=== PATIENT | male | born 1950 | race Caucasian/White ===

== ENCOUNTER 2016-06-02 13:15 | Inpatient (IN) | payer MEDICARE, MEDICAID, OTHER ==
[2016-06-02] MEDS ORDERED: Sodium Chloride 0.9% 10 ML Syringe FLUSH PRN (13:40)
[2016-06-02] MEDS ORDERED: Sodium Chloride 0.9% 1,000 ML IV SCH (14:15)
[2016-06-02] MEDS ORDERED: LORazepam 2 MG/ML MDV ONE (14:23)
[2016-06-02] MEDS ORDERED: LORazepam 2 MG/ML MDV IVPUSH ONE (14:30)
[2016-06-02] MEDS ORDERED: Piperacillin/Tazobactam/Dext 3.375 GM in Premix Bag 1 BAG IV SCH (14:30)
[2016-06-02] MEDS ORDERED: Vancomycin 1 GM SDV IV SCH (15:00)
[2016-06-02] MEDS ORDERED: Gadoteridol 279.3 MG/ML 20 ML SDV IV SCH (15:00)
[2016-06-02] MEDS ORDERED: Amitriptyline 25 MG Tab PO PRN (15:35)
[2016-06-02] MEDS ORDERED: Glucose Gel 15 GM in 37.5 GM Tube PO PRN (15:39)
[2016-06-02] MEDS ORDERED: 50% Dextrose in Water 50 ML Syringe IV PRN (15:39)
[2016-06-02] MEDS ORDERED: Vancomycin 1.8 GM in Sodium Chloride 0.9% 250 ML IV ONE (16:00)
[2016-06-02] MEDS ORDERED: Nicotine 14 MG/24 Hr Patch ONE (18:09)
--- NOTE | 2016-06-02 19:09 | PCM.HP ---
H&P History of Present Illness - General Date of Service: 06/02/16 Admit Problem/Dx: Source of Information: Patient, Old records, Provider History Limitations: Reports: No limitations - History of Present Illness Initial Comments - Free Text/Narative: This patient is a 65-year-old gentleman who is admitted as a direct admission from the clinic for further evaluation and management of an infected diabetic foot ulcer on his right foot. He is had long-standing history of diabetes as well as known peripheral arterial disease secondary to long-standing tobacco use. He has had previous toe amputations secondary to uncontrolled diabetic infections. She was obtained at the clinic and apparently showed no evidence of osteomyelitis, MRI of the foot is been obtained since admission, the results of which are pending at the time of this dictation. He has felt somewhat more weak over the past few days and was noted to have a fever at the clinic this morning. - Related Data Allergies/Adverse Reactions: Allergies Allergy/AdvReac Type Severity Reaction Status Date / Time No Known Allergies Allergy Verified 04/18/16 12:57 Home Medications: Home Meds Insulin Glargine,Hum.Rec.Anlog [Lantus Solostar] 28 units SQ DAILY 03/14/13 [ History] metFORMIN [Glucophage] 850 mg PO TIDM 03/14/13 [History] Venlafaxine [Effexor] 75 mg PO BID 10/12/13 [History] atorvaSTATin [Lipitor] 10 mg PO BEDTIME 10/12/13 [History] Amitriptyline [Elavil] 25 mg PO BEDTIME PRN 10/16/15 [History] Gabapentin [Neurontin] 800 mg PO TID 10/16/15 [History] Hydrochlorothiazide [Microzide] 12.5 mg PO DAILY 10/16/15 [History] Mupirocin Calcium [Bactroban] 1 applic TP TID 10/16/15 [History] Pentoxifylline [TRENtal] 400 mg PO TID 10/16/15 [History] QUEtiapine [SEROquel] 1 - 2 mg PO BEDTIME PRN 10/16/15 [History] Sulfamethoxazole/Trimethoprim [Bactrim 400-80 MG] 2 tab PO BID 10/16/15 [History ] Morphine [MS Contin] 15 mg PO Q12HR 06/02/16 [History] Morphine [MS Contin] 30 mg PO Q12HR 06/02/16 [History] Past Medical History HEENT History: Reports: Impaired vision Other HEENT History: wears glasses-wolfe not have them with Cardiovascular History: Reports: Hypertension Respiratory History: Reports: None Musculoskeletal History: Reports: Amputation, Other (see below) Other Musculoskeletal History: spinal stenosis, carpal tunnel , lumbar stenosis , toe amputations on both feet Neurological History: Reports: Neuropathy, diabetic Psychiatric History: Reports: Depression Endocrine/Metabolic History: Reports: Diabetes, type II Other Immunologic History: infections in L foot Other Dermatologic History: diabetic ulcer - Infectious Disease History Infectious Disease History: Reports: Chicken pox - Past Surgical History Cardiovascular Surgical History: Reports: Other (see below) Other Cardiovascular Surgeries/Procedures: angiogram, shunts in bilat leg Respiratory Surgical History: Reports: None GI Surgical History: Reports: None Social & Family History - Family History Family Medical History: Noncontributory - Tobacco Use Smoking Status *Q: Current Every Day Smoker Years of Tobacco use: 30 Packs/Tins Daily: 0.5 Used Tobacco, but Quit: No Second Hand Smoke Exposure: No - Caffeine Use Caffeine Use: Reports: Soda - Alcohol Use Days Per Week of Alcohol Use: 0 - Recreational Drug Use Recreational Drug Use: No H&P Review of Systems - Review of Systems: Review Of Systems: See Below General: Reports: fever, weakness. Denies: chills HEENT: Reports: no symptoms Pulmonary: Reports: No Symptoms Cardiovascular: Reports: no symptoms Gastrointestinal: Reports: No symptoms Genitourinary: Reports: no symptoms Musculoskeletal: Reports: foot pain Skin: Reports: no symptoms Psychiatric: Reports: no symptoms Neurological: Reports: No Symptoms Hematologic/Lymphatic: Reports: no symptoms Immunologic: Reports: no symptoms Exam - Exam Exam: See Below - Vital Signs Vital Signs: Last Vital Signs Temp 96.8 F 06/02/16 15:15 Pulse 81 06/02/16 15:15 Resp 18 06/02/16 15:15 BP 133/67 06/02/16 15:15 Pulse Ox 97 06/02/16 15:15 Weight: 206 lb 6.4 oz - Exam Quality Assessment: DVT prophylaxis General: alert, oriented, cooperative, mild distress HEENT: Conjunctiva clear, EOMI, Hearing intact, Mucosa moist & pink, Nares patent, Normal nasal septum, Posterior pharynx clear, Pupils equal, Pupils reactive, TMs clear Neck: supple, trachea midline, +2 carotid pulse wo bruit Lungs: Clear to auscultation, Normal respiratory effort, Decreased breath sounds. No: Wheezing Cardiovascular: regular rate, regular rhythm, normal S1, normal S2. No: tachycardia, systolic murmur, diastolic murmur Abdomen: normal bowel sounds, soft Back Exam: normal inspection, full range of motion, NT Extremities: other (Dressings in place on both the right and left feet) Skin: warm, dry, intact Neurological: cranial nerves intact, strength equal bilateral, normal speech, normal tone. No: focal deficit Neuro Extensive - Mental Status: alert, oriented x3, normal mood/affect, normal cognition, memory intact - Patient Data Lab Results last 24 hrs: Laboratory Results - last 24 hr 06/02/16 06/02/16 Range/Units 13:58 13:58 WBC 15.8 H (4.5-11.0) K/uL RBC 4.17 L (4.30-5.90) M/uL Hgb 12.2 (12.0-15.0) g/dL Hct 36.7 L (40.0-54.0) % MCV 88 (80-98) fL MCH 29 (27-31) pg MCHC 33 (32-36) % Plt Count 304 (150-400) K/uL Neut % (Auto) 72 H (36-66) % Lymph % (Auto) 20 L (24-44) % Will % (Auto) 6 (2-6) % Eos % (Auto) 1 L (2-4) % Baso % (Auto) 0 (0-1) % ESR 45 H (0-20) mm/hr Sodium 140 (140-148) mmol/L Potassium 4.6 (3.6-5.2) mmol/L Chloride 101 (100-108) mmol/L Carbon Dioxide 30 (21-32) mmol/L Anion Gap 8.7 (5.0-14.0) mmol/L BUN 24 H (7-18) mg/dL Creatinine 1.0 (0.8-1.3) mg/dL Est Cr Clr Drug Dosing 80.83 mL/min Estimated GFR (MDRD) > 60 (>60) Glucose 95 (74-106) mg/dL Calcium 8.9 (8.5-10.1) mg/dL Total Bilirubin 0.5 D (0.2-1.0) mg/dL AST 25 (15-37) U/L ALT 21 (12-78) U/L Alkaline Phosphatase 94 (46-116) U/L C-Reactive Protein 1.75 H (0.0-0.3) mg/dL Total Protein 8.4 H (6.4-8.2) g/dL Albumin 4.1 (3.4-5.0) g/dL Globulin 4.3 H (2.3-3.5) g/dL Albumin/Globulin Ratio 1.0 L (1.2-2.2) Result Diagrams: 06/02/16 13:58 06/02/16 13:58 *Q Meaningful Use (ADM) - VTE *Q VTE Criteria *Q: - VTE Risk Assess *Q Each Risk Factor Represents 1 Point: None Total Score 1 Point Risk Factors: 0 Each Risk Factor Represents 2 Points: Age 60 - 74 Years Total Score 2 Point Risk Factors: 2 Each Risk Factor Represents 3 Points: None Total Score 3 Point Risk Factors: 0 Each Risk Factor Represents 5 Points: None Total Score 5 Point Risk Factors: 0 Venous Thromboembolism Risk Factor Score *Q: 2 - Stroke *Q Stroke Criteria *Q: - AMI *Q AMI Criteria *Q: Problem List Initiated/Reviewed/Updated: Yes Orders Last 24hrs: Active Orders 24 hr Category Date Time Status Patient Status [ADT] Routine ADT 06/02/16 13:40 Active Bedrest Bathroom Privileges [RC] ASDIRECTED Care 06/02/16 13:48 Active Blood Glucose Check, Bedside [RC] QIDACANDBED Care 06/02/16 15:39 Active Communication Order [RC] ASDIRECTED Care 06/02/16 15:39 Active Diabetes Education [RC] Click to Edit Care 06/02/16 15:39 Active Dressing Change [Wound Care] [RC] DAILY Care 06/02/16 14:03 Active Elevate Foot of Bed [RC] ASDIRECTED Care 06/02/16 13:47 Active Notify Provider Consults [RC] ASDIRECTED Care 06/02/16 13:46 Active Notify Provider [RC] PRN Care 06/02/16 15:39 Active Oxygen Therapy [RC] PRN Care 06/02/16 13:40 Active Peripheral IV Care [RC] . DIRECTED Care 06/02/16 13:46 Active VTE/DVT Education [RC] Per Unit Routine Care 06/02/16 13:40 Active Vital Signs [RC] QSHIFT Care 06/02/16 13:40 Active Consult to Physician [CONS] Routine Cons 06/02/16 13:40 Ordered Consistent Carbohydrate Diet [DIET] Diet 06/02/16 Lunch Active Lwr Ext Non Joint w wo Cont Rt [MR] Routine Exams 06/02/16 13:53 Taken BASIC METABOLIC PANEL,BMP [CHEM] Timed Lab 06/03/16 05:00 Ordered CBC WITH AUTO DIFF [HEME] Timed Lab 06/03/16 05:00 Ordered GLUCOSE POC LAB TO COLLECT [POC] QIDACANDBED Lab 06/02/16 21:00 Ordered GLUCOSE POC LAB TO COLLECT [POC] QIDACANDBED Lab 06/03/16 07:30 Ordered GLUCOSE POC LAB TO COLLECT [POC] QIDACANDBED Lab 06/03/16 11:30 Ordered GLUCOSE POC LAB TO COLLECT [POC] QIDACANDBED Lab 06/03/16 16:30 Ordered GLUCOSE POC LAB TO COLLECT [POC] QIDACANDBED Lab 06/03/16 21:00 Ordered GLUCOSE POC LAB TO COLLECT [POC] QIDACANDBED Lab 06/04/16 07:30 Ordered GLUCOSE POC LAB TO COLLECT [POC] QIDACANDBED Lab 06/04/16 11:30 Ordered GLUCOSE POC LAB TO COLLECT [POC] QIDACANDBED Lab 06/04/16 16:30 Ordered GLUCOSE POC LAB TO COLLECT [POC] QIDACANDBED Lab 06/04/16 21:00 Ordered GLUCOSE POC LAB TO COLLECT [POC] QIDACANDBED Lab 06/05/16 07:30 Ordered GLUCOSE POC LAB TO COLLECT [POC] QIDACANDBED Lab 06/05/16 11:30 Ordered GLUCOSE POC LAB TO COLLECT [POC] QIDACANDBED Lab 06/05/16 16:30 Ordered GLUCOSE POC LAB TO COLLECT [POC] QIDACANDBED Lab 06/05/16 21:00 Ordered GLUCOSE POC LAB TO COLLECT [POC] QIDACANDBED Lab 06/06/16 07:30 Ordered GLUCOSE POC LAB TO COLLECT [POC] QIDACANDBED Lab 06/06/16 11:30 Ordered GLUCOSE POC LAB TO COLLECT [POC] QIDACANDBED Lab 06/06/16 16:30 Ordered GLUCOSE POC LAB TO COLLECT [POC] QIDACANDBED Lab 06/06/16 21:00 Ordered GLUCOSE POC LAB TO COLLECT [POC] QIDACANDBED Lab 06/07/16 07:30 Ordered GLUCOSE POC LAB TO COLLECT [POC] QIDACANDBED Lab 06/07/16 11:30 Ordered GLUCOSE POC LAB TO COLLECT [POC] QIDACANDBED Lab 06/07/16 16:30 Ordered GLUCOSE POC LAB TO COLLECT [POC] QIDACANDBED Lab 06/07/16 21:00 Ordered GLUCOSE POC LAB TO COLLECT [POC] QIDACANDBED Lab 06/08/16 07:30 Ordered GLUCOSE POC LAB TO COLLECT [POC] QIDACANDBED Lab 06/08/16 11:30 Ordered GLUCOSE POC LAB TO COLLECT [POC] QIDACANDBED Lab 06/08/16 16:30 Ordered GLUCOSE POC LAB TO COLLECT [POC] QIDACANDBED Lab 06/08/16 21:00 Ordered GLUCOSE POC LAB TO COLLECT [POC] QIDACANDBED Lab 06/09/16 07:30 Ordered GLUCOSE POC LAB TO COLLECT [POC] QIDACANDBED Lab 06/09/16 11:30 Ordered GLUCOSE POC LAB TO COLLECT [POC] QIDACANDBED Lab 06/09/16 16:30 Ordered GLUCOSE POC LAB TO COLLECT [POC] QIDACANDBED Lab 06/09/16 21:00 Ordered GLUCOSE POC LAB TO COLLECT [POC] QIDACANDBED Lab 06/10/16 07:30 Ordered GLUCOSE POC LAB TO COLLECT [POC] QIDACANDBED Lab 06/10/16 11:30 Ordered GLUCOSE POC LAB TO COLLECT [POC] QIDACANDBED Lab 06/10/16 16:30 Ordered GLUCOSE POC LAB TO COLLECT [POC] QIDACANDBED Lab 06/10/16 21:00 Ordered GLUCOSE POC LAB TO COLLECT [POC] QIDACANDBED Lab 06/11/16 07:30 Ordered GLUCOSE POC LAB TO COLLECT [POC] QIDACANDBED Lab 06/11/16 11:30 Ordered GLUCOSE POC LAB TO COLLECT [POC] QIDACANDBED Lab 06/11/16 16:30 Ordered GLUCOSE POC LAB TO COLLECT [POC] QIDACANDBED Lab 06/11/16 21:00 Ordered GLUCOSE POC LAB TO COLLECT [POC] QIDACANDBED Lab 06/12/16 07:30 Ordered GLUCOSE POC LAB TO COLLECT [POC] QIDACANDBED Lab 06/12/16 11:30 Ordered GLUCOSE POC LAB TO COLLECT [POC] QIDACANDBED Lab 06/12/16 16:30 Ordered GLUCOSE POC LAB TO COLLECT [POC] QIDACANDBED Lab 06/12/16 21:00 Ordered GLUCOSE POC LAB TO COLLECT [POC] QIDACANDBED Lab 06/13/16 07:30 Ordered GLUCOSE POC LAB TO COLLECT [POC] QIDACANDBED Lab 06/13/16 11:30 Ordered Amitriptyline [Elavil] Med 06/02/16 15:35 Active 25 mg PO BEDTIME PRN Dextrose 50% in Water Med 06/02/16 15:39 Active 50 ml IV ONETIME PRN Dextrose [Glutose 15] Med 06/02/16 15:39 Active 15 gm PO ONETIME PRN Gabapentin [Neurontin] Med 06/02/16 21:00 Active 800 mg PO TID Hydrochlorothiazide Med 06/03/16 09:00 Active 12.5 mg PO DAILY Insulin Aspart [NovoLOG] Med 06/02/16 15:45 Active See Protocol SUBCUT ASDIRECTED Insulin Detemir [Levemir] Med 06/03/16 09:00 Active 28 unit SUBCUT DAILY Nicotine [Habitrol] Med 06/03/16 09:00 Active 14 mg TRDERM DAILY Pentoxifylline [TRENtal] Med 06/02/16 21:00 Active 400 mg PO TID Piperacillin/Tazobactam/Dext [Zosyn in Dextrose Iso- Med 06/02/16 20:00 Active Osmotic 3.375 GM] 3.375 gm Premix Bag 1 bag IV Q6H QUEtiapine [SEROquel] Med 06/02/16 15:35 Active 0 mg PO BEDTIME PRN Sodium Chloride 0.9% [Normal Saline] 1,000 ml Med 06/02/16 14:15 Active IV ASDIRECTED Sodium Chloride 0.9% [Saline Flush] Med 06/02/16 13:40 Active 10 ml FLUSH ASDIRECTED PRN Vancomycin Med 06/02/16 15:00 Active 0 gm IV .PHARMACY TO DOSE Vancomycin 1.5 gm Med 06/03/16 04:00 Active Sodium Chloride 0.9% [Normal Saline] 250 ml IV Q12H Venlafaxine [Effexor] Med 06/02/16 21:00 Active 75 mg PO BID atorvaSTATin [Lipitor] Med 06/02/16 21:00 Active 10 mg PO BEDTIME metFORMIN [Glucophage] Med 06/02/16 17:00 Active 850 mg PO TIDM Peripheral IV Insertion Adult [OM.PC] Routine Oth 06/02/16 13:40 Ordered Resuscitation Status Routine Resus Stat 06/02/16 13:40 Ordered Medication Orders Amitriptyline HCl (Elavil) 25 mg PO BEDTIME PRN PRN Reason: Sleep Atorvastatin Calcium (Lipitor) 10 mg PO BEDTIME [facility] Dextrose (Glutose 15) 15 gm PO ONETIME PRN PRN Reason: Hypoglycemia Dextrose/Water (Dextrose 50% In Water) 50 ml IV ONETIME PRN PRN Reason: Hypoglycemia Gabapentin (Neurontin) 800 mg PO TID [facility] Hydrochlorothiazide (Hydrochlorothiazide) 12.5 mg PO DAILY [facility] Sodium Chloride (Normal Saline) 1,000 mls @ 25 mls/hr IV ASDIRECTED [facility] Piperacillin/Tazobactam/ (Dextrose 3.375 gm/ Premix) 50 mls @ 100 mls/hr IV Q6H [facility] Vancomycin HCl 1.5 gm/ Sodium (Chloride) 250 mls @ 150 mls/hr IV Q12H [facility] Insulin Aspart (Novolog) 0 unit SUBCUT ASDIRECTED [facility] PRN Reason: Protocol Insulin Detemir (Levemir) 28 unit SUBCUT DAILY [facility] Metformin HCl (Glucophage) 850 mg PO TIDM [facility] Last Admin: 06/02/16 17:31 Dose: 850 mg Nicotine (Habitrol) 14 mg TRDERM DAILY [facility] Pentoxifylline (Trental) 400 mg PO TID [facility] Quetiapine Fumarate (Seroquel) 0 mg PO BEDTIME PRN PRN Reason: Sleep Sodium Chloride (Saline Flush) 10 ml FLUSH ASDIRECTED PRN PRN Reason: Keep Vein Open Vancomycin HCl (Vancomycin) 0 gm IV .PHARMACY TO DOSE [facility] Venlafaxine HCl (Effexor) 75 mg PO BID [facility] Assessment/Plan Comment:: ASSESSMENT AND PLAN DIABETIC FOOT ULCER RIGHT FOOT-ulcer looked better one week ago, when seen today was noted to have mike pus. No evidence of osteomyelitis on x-ray. -MRI results pending -Continue current antibiotic therapy as ordered by Dr. Tuttle -IV fluids until tomorrow a.m. -Surgical followup per Dr. Robbins TYPE 2 DIABETES [id number] with history of very poor control and noncompliance. -Continue outpatient dose of long-acting insulin -Continue outpatient dose of NovoLog with each meal -Sliding scale NovoLog -4 times a day glucometers MAINTENANCE ISSUES -DVT prophylaxis; Lovenox 40 mg subcutaneous daily -GI prophylaxis; not required -Colon catheter; not indicated -Nutrition; diabetic diet -Nicotine dependence; nicotinic patch CODE STATUS-FULL CODE ADMISSION STATUS-patient will be admitted to inpatient status, expect at least a 2 night hospital stay for evaluation and management of problems as outlined above. At the time of this admission I do not reasonably expected evaluation and management of this problem will require more than a 96 hour hospital stay. DISPOSITION-anticipate discharge to home after the hospital stay. PRIMARY CARE PROVIDER-Dr. Jara
[2016-06-02] MEDS ORDERED: Enoxaparin 40 MG/0.4 ML Syringe SUBCUT SCH (19:15)
[2016-06-02] MEDS: Piperacillin/Tazobactam/Dext 3.375 GM in Premix Bag 1 BAG IV SCH (21:28)
[2016-06-02] MEDS: Insulin Aspart 100 Units/ML 3 ML Pen SUBCUT SCH (21:34)
[2016-06-02] MEDS: Morphine 15 MG Tab.ER PO SCH (21:36)
[2016-06-02] MEDS: Morphine 30 MG Tab.ER PO SCH (21:39)
[2016-06-02] MEDS: atorvaSTATin 10 MG Tab PO SCH (21:40)
[2016-06-02] MEDS: Gabapentin 400 MG Cap PO SCH (21:40)
[2016-06-02] MEDS: Venlafaxine 75 MG Tab PO SCH (21:40)
[2016-06-02] MEDS: Pentoxifylline 400 MG Tab.ER PO SCH (21:41)
[2016-06-03] MEDS: Piperacillin/Tazobactam/Dext 3.375 GM in Premix Bag 1 BAG IV SCH ×4 (02:17→20:28)
[2016-06-03] MEDS: QUEtiapine 25 MG Tab PO PRN ×2 (03:02→20:37)
--- NOTE | 2016-06-03 08:35 | MR ---
Lwr Ext Non Joint w wo Cont Rt HISTORY: infected right foot Multiplanar sequences of the right foot were obtained without and with gadolinium. FINDINGS: Has been previous amputation of the second and third toes. There is increased T2 signal co nsistent with marrow edema along with enhancement distal right third metatarsal suspicious for osteo myelitis. I cannot identify definite bony destructive or erosive changes. No other marrow edema or a bnormal marrow enhancement is identified. Soft tissue edema and enhancement is seen distal foot cons istent with cellulitis. I see no signs of abscess. IMPRESSION: 1. Old amputation changes right second and third toes. 2. Soft tissue edema and enhancement distal foot suggesting cellulitis. 3. There is marrow edema and enhancement distal third metatarsal likely representing osteomyelitis.
[2016-06-03] MEDS: Morphine 30 MG Tab.ER PO SCH ×2 (09:05→20:36)
[2016-06-03] MEDS: Morphine 15 MG Tab.ER PO SCH ×2 (09:08→20:36)
[2016-06-03] MEDS: Insulin Detemir 100 Units/ML 3 ML Pen SUBCUT SCH (09:08)
[2016-06-03] MEDS: Nicotine 14 MG/24 Hr Patch TRDERM SCH (09:10)
[2016-06-03] MEDS: Gabapentin 400 MG Cap PO SCH ×3 (12:53→20:37)
[2016-06-03] MEDS: Pentoxifylline 400 MG Tab.ER PO SCH ×3 (12:53→20:37)
[2016-06-03] MEDS: Hydrochlorothiazide 12.5 MG Cap PO SCH (15:05)
[2016-06-03] MEDS: Venlafaxine 75 MG Tab PO SCH ×2 (15:05→20:36)
[2016-06-03] MEDS: Insulin Aspart 100 Units/ML 3 ML Pen SUBCUT SCH ×2 (17:48→22:36)
--- NOTE | 2016-06-03 17:55 | PCM.PN ---
- General Info Date of Service: 06/03/16 Functional Status: Reports: tolerating diet, urinating - Review of Systems General: Denies: Fever, Chills Pulmonary: Reports: no symptoms Cardiovascular: Reports: No Symptoms Gastrointestinal: Reports: No symptoms Systems Review Comment:: This patient has been stable over the past 24 hours, vital signs have been good and he has remained afebrile. White blood cell count has improved since admission but still remains mildly elevated. MRI was obtained today and shows evidence of cellulitis in the foot, but also suspicious for osteomyelitis. - Patient Data Vitals - most recent: Last Vital Signs Temp 95.4 F 06/03/16 14:41 Pulse 65 06/03/16 14:41 Resp 16 06/03/16 14:41 BP 99/65 06/03/16 14:41 Pulse Ox 100 06/03/16 14:41 Weight - most recent: 206 lb 6.4 oz I&O - last 24 hours: Intake & Output 06/03/16 06/03/16 06/03/16 06:59 14:59 22:59 Intake Total 50 290 771 Balance 50 290 771 Lab Results last 24 hrs: Laboratory Results - last 24 hr 06/03/16 06/03/16 Range/Units 04:50 04:50 WBC 11.4 H (4.5-11.0) K/uL RBC 3.85 L (4.30-5.90) M/uL Hgb 11.1 L (12.0-15.0) g/dL Hct 33.6 L (40.0-54.0) % MCV 87 (80-98) fL MCH 29 (27-31) pg MCHC 33 (32-36) % Plt Count 244 (150-400) K/uL Neut % (Auto) 54 (36-66) % Lymph % (Auto) 36 (24-44) % [place] % (Auto) 7 H (2-6) % Eos % (Auto) 3 (2-4) % Baso % (Auto) 0 (0-1) % Sodium 141 (140-148) mmol/L Potassium 4.0 (3.6-5.2) mmol/L Chloride 105 (100-108) mmol/L Carbon Dioxide 29 (21-32) mmol/L Anion Gap 7.1 (5.0-14.0) mmol/L BUN 21 H (7-18) mg/dL Creatinine 1.0 (0.8-1.3) mg/dL Est Cr Clr Drug Dosing 80.83 mL/min Estimated GFR (MDRD) > 60 (>60) Glucose 70 L (74-106) mg/dL Calcium 8.2 L (8.5-10.1) mg/dL Med Orders - Current: Current Medications Amitriptyline HCl (Elavil) 25 mg PO BEDTIME PRN PRN Reason: Sleep Atorvastatin Calcium (Lipitor) 10 mg PO BEDTIME [facility] Last Admin: 06/02/16 21:40 Dose: 10 mg Dextrose (Glutose 15) 15 gm PO ONETIME PRN PRN Reason: Hypoglycemia Dextrose/Water (Dextrose 50% In Water) 50 ml IV ONETIME PRN PRN Reason: Hypoglycemia Enoxaparin Sodium (Lovenox) 40 mg SUBCUT BEDTIME [facility] Gabapentin (Neurontin) 800 mg PO TID [facility] Last Admin: 06/03/16 15:05 Dose: 800 mg Hydrochlorothiazide (Hydrochlorothiazide) 12.5 mg PO DAILY [facility] Last Admin: 06/03/16 15:05 Dose: 12.5 mg Sodium Chloride (Normal Saline) 1,000 mls @ 25 mls/hr IV ASDIRECTED [facility] Piperacillin/Tazobactam/ (Dextrose 3.375 gm/ Premix) 50 mls @ 100 mls/hr IV Q6H [facility] Last Admin: 06/03/16 15:06 Dose: 100 mls/hr Vancomycin HCl 1.5 gm/ Sodium (Chloride) 250 mls @ 150 mls/hr IV Q12H [facility] Last Admin: 06/03/16 17:12 Dose: 150 mls/hr Insulin Aspart (Novolog) 0 unit SUBCUT ASDIRECTED [facility] PRN Reason: Protocol Last Admin: 06/02/16 21:34 Dose: 2 unit Insulin Detemir (Levemir) 28 unit SUBCUT DAILY [facility] Last Admin: 06/03/16 09:08 Dose: Not Given Metformin HCl (Glucophage) 850 mg PO TIDM [facility] Last Admin: 06/03/16 15:05 Dose: 850 mg Morphine Sulfate (Ms Contin) 30 mg PO Q12H [facility] Last Admin: 06/03/16 09:05 Dose: 30 mg Morphine Sulfate (Ms Contin) 15 mg PO Q12H [facility] Last Admin: 06/03/16 09:08 Dose: 15 mg Nicotine (Habitrol) 14 mg TRDERM DAILY [facility] Last Admin: 06/03/16 09:10 Dose: 14 mg Pentoxifylline (Trental) 400 mg PO TID [facility] Last Admin: 06/03/16 15:04 Dose: 400 mg Quetiapine Fumarate (Seroquel) 0 mg PO BEDTIME PRN PRN Reason: Sleep Last Admin: 06/03/16 03:02 Dose: 50 mg Sodium Chloride (Saline Flush) 10 ml FLUSH ASDIRECTED PRN PRN Reason: Keep Vein Open Venlafaxine HCl (Effexor) 75 mg PO BID [facility] Last Admin: 06/03/16 15:05 Dose: 75 mg Discontinued Medications Enoxaparin Sodium (Lovenox) 40 mg SUBCUT DAILY [facility] Last Admin: 06/02/16 21:47 Dose: 40 mg Gadoteridol (Prohance) 20 ml IV . DIRECTED [facility] Stop: 06/02/16 15:01 Last Admin: 06/02/16 15:40 Dose: 19 ml Piperacillin/Tazobactam/ (Dextrose 3.375 gm/ Premix) 50 mls @ 100 mls/hr IV Q6H [facility] Stop: 06/02/16 16:00 Last Admin: 06/02/16 17:29 Dose: 100 mls/hr Vancomycin HCl 1.8 gm/ Sodium (Chloride) 250 mls @ 150 mls/hr IV ONETIME ONE Stop: 06/02/16 17:39 Last Admin: 06/02/16 17:29 Dose: 150 mls/hr Lorazepam (Ativan) 0.5 mg IVPUSH ONETIME ONE Stop: 06/02/16 14:31 Last Admin: 06/02/16 14:26 Dose: 0.5 mg Lorazepam (Ativan) Confirm Administered Dose 2 mg .ROUTE .STK-MED ONE Stop: 06/02/16 14:24 Last Admin: 06/02/16 17:00 Dose: Not Given Nicotine (Habitrol) Confirm Administered Dose 14 mg .ROUTE .STK-MED ONE Stop: 06/02/16 18:10 Last Admin: 06/02/16 18:36 Dose: 14 mg Vancomycin HCl (Vancomycin) 0 gm IV .PHARMACY TO DOSE HARIS - Exam Quality Assessment: DVT prophylaxis General: alert, oriented, cooperative, no acute distress Lungs: Clear to auscultation, Normal respiratory effort Cardiovascular: Regular Rate, Regular Rhythm, No Murmurs Abdomen: bowel sounds present, soft, no tenderness, no distension Extremities: no edema, other (Open ulcer lateral aspect of the right foot) Skin: warm, dry, intact - Problem List Review Problem List Initiated/Reviewed/Updated: Yes - My Orders Last 24 Hours: My Active Orders 06/02/16 17:00 metFORMIN [Glucophage] 850 mg PO TIDM 06/02/16 21:00 Gabapentin [Neurontin] 800 mg PO TID Morphine [MS Contin] 15 mg PO Q12H Morphine [MS Contin] 30 mg PO Q12H Pentoxifylline [TRENtal] 400 mg PO TID Venlafaxine [Effexor] 75 mg PO BID atorvaSTATin [Lipitor] 10 mg PO BEDTIME 06/03/16 09:00 Hydrochlorothiazide 12.5 mg PO DAILY Insulin Detemir [Levemir] 28 unit SUBCUT DAILY Nicotine [Habitrol] 14 mg TRDERM DAILY 06/03/16 21:00 GLUCOSE POC LAB TO COLLECT [POC] QIDACANDBED Enoxaparin [Lovenox] 40 mg SUBCUT BEDTIME 06/04/16 07:30 GLUCOSE POC LAB TO COLLECT [POC] QIDACANDBED 06/04/16 11:30 GLUCOSE POC LAB TO COLLECT [POC] QIDACANDBED 06/04/16 16:30 GLUCOSE POC LAB TO COLLECT [POC] QIDACANDBED 06/04/16 21:00 GLUCOSE POC LAB TO COLLECT [POC] QIDACANDBED 06/05/16 07:30 GLUCOSE POC LAB TO COLLECT [POC] QIDACANDBED 06/05/16 11:30 GLUCOSE POC LAB TO COLLECT [POC] QIDACANDBED 06/05/16 16:30 GLUCOSE POC LAB TO COLLECT [POC] QIDACANDBED 06/05/16 21:00 GLUCOSE POC LAB TO COLLECT [POC] QIDACANDBED 06/06/16 07:30 GLUCOSE POC LAB TO COLLECT [POC] QIDACANDBED 06/06/16 11:30 GLUCOSE POC LAB TO COLLECT [POC] QIDACANDBED 06/06/16 16:30 GLUCOSE POC LAB TO COLLECT [POC] QIDACANDBED 06/06/16 21:00 GLUCOSE POC LAB TO COLLECT [POC] QIDACANDBED 06/07/16 07:30 GLUCOSE POC LAB TO COLLECT [POC] QIDACANDBED 06/07/16 11:30 GLUCOSE POC LAB TO COLLECT [POC] QIDACANDBED 06/07/16 16:30 GLUCOSE POC LAB TO COLLECT [POC] QIDACANDBED 06/07/16 21:00 GLUCOSE POC LAB TO COLLECT [POC] QIDACANDBED 06/08/16 07:30 GLUCOSE POC LAB TO COLLECT [POC] QIDACANDBED 06/08/16 11:30 GLUCOSE POC LAB TO COLLECT [POC] QIDACANDBED 06/08/16 16:30 GLUCOSE POC LAB TO COLLECT [POC] QIDACANDBED 06/08/16 21:00 GLUCOSE POC LAB TO COLLECT [POC] QIDACANDBED 06/09/16 07:30 GLUCOSE POC LAB TO COLLECT [POC] QIDACANDBED 06/09/16 11:30 GLUCOSE POC LAB TO COLLECT [POC] QIDACANDBED 06/09/16 16:30 GLUCOSE POC LAB TO COLLECT [POC] QIDACANDBED 06/09/16 21:00 GLUCOSE POC LAB TO COLLECT [POC] QIDACANDBED 06/10/16 07:30 GLUCOSE POC LAB TO COLLECT [POC] QIDACANDBED 06/10/16 11:30 GLUCOSE POC LAB TO COLLECT [POC] QIDACANDBED 06/10/16 16:30 GLUCOSE POC LAB TO COLLECT [POC] QIDACANDBED 06/10/16 21:00 GLUCOSE POC LAB TO COLLECT [POC] QIDACANDBED 06/11/16 07:30 GLUCOSE POC LAB TO COLLECT [POC] QIDACANDBED 06/11/16 11:30 GLUCOSE POC LAB TO COLLECT [POC] QIDACANDBED 06/11/16 16:30 GLUCOSE POC LAB TO COLLECT [POC] QIDACANDBED 06/11/16 21:00 GLUCOSE POC LAB TO COLLECT [POC] QIDACANDBED 06/12/16 07:30 GLUCOSE POC LAB TO COLLECT [POC] QIDACANDBED 06/12/16 11:30 GLUCOSE POC LAB TO COLLECT [POC] QIDACANDBED 06/12/16 16:30 GLUCOSE POC LAB TO COLLECT [POC] QIDACANDBED 06/12/16 21:00 GLUCOSE POC LAB TO COLLECT [POC] QIDACANDBED 06/13/16 07:30 GLUCOSE POC LAB TO COLLECT [POC] QIDACANDBED 06/13/16 11:30 GLUCOSE POC LAB TO COLLECT [POC] QIDACANDBED - Plan Plan:: ASSESSMENT AND PLAN DIABETIC FOOT ULCER RIGHT FOOT-stable since admission, afebrile, white blood cell count improved. MRI showed evidence of cellulitis in the soft tissue of the right foot and possible osteomyelitis. -Continue current antibiotic therapy as ordered by Dr. Tuttle -Saline lock IV -Surgical followup per Dr. Robbins TYPE 2 DIABETES [id number] with history of very poor control and noncompliance. -Continue outpatient dose of long-acting insulin -Continue outpatient dose of NovoLog with each meal -Sliding scale NovoLog -4 times a day glucometers MAINTENANCE ISSUES -DVT prophylaxis; Lovenox 40 mg subcutaneous daily -GI prophylaxis; not required -Colon catheter; not indicated -Nutrition; diabetic diet -Nicotine dependence; nicotinic patch CODE STATUS-FULL CODE ADMISSION STATUS-patient will be admitted to inpatient status, expect at least a 2 night hospital stay for evaluation and management of problems as outlined above. At the time of this admission I do not reasonably expected evaluation and management of this problem will require more than a 96 hour hospital stay. DISPOSITION-anticipate discharge to home after the hospital stay. PRIMARY CARE PROVIDER-Dr. Jara
[2016-06-03] MEDS: Enoxaparin 40 MG/0.4 ML Syringe SUBCUT SCH (20:36)
[2016-06-03] MEDS: atorvaSTATin 10 MG Tab PO SCH (20:36)
[2016-06-04] MEDS: Piperacillin/Tazobactam/Dext 3.375 GM in Premix Bag 1 BAG IV SCH ×2 (02:07→08:03)
[2016-06-04] MEDS: Nicotine 14 MG/24 Hr Patch TRDERM SCH (08:35)
[2016-06-04] MEDS: Gabapentin 400 MG Cap PO SCH ×3 (08:36→21:08)
[2016-06-04] MEDS: Pentoxifylline 400 MG Tab.ER PO SCH ×3 (08:39→21:08)
[2016-06-04] MEDS: Insulin Detemir 100 Units/ML 3 ML Pen SUBCUT SCH (08:42)
[2016-06-04] MEDS: Morphine 30 MG Tab.ER PO SCH ×2 (08:50→21:02)
[2016-06-04] MEDS: Morphine 15 MG Tab.ER PO SCH ×2 (08:50→21:07)
[2016-06-04] MEDS: Venlafaxine 75 MG Tab PO SCH ×2 (09:09→21:01)
[2016-06-04] MEDS: Hydrochlorothiazide 12.5 MG Cap PO SCH (09:09)
--- NOTE | 2016-06-04 11:55 | PCM.PN ---
- General Info Date of Service: 06/04/16 Functional Status: Reports: pain controlled, ambulating, urinating - Review of Systems General: Denies: Fever, Chills Pulmonary: Reports: no symptoms Cardiovascular: Reports: No Symptoms Gastrointestinal: Reports: No symptoms Musculoskeletal: Reports: foot pain Systems Review Comment:: Mr. Fry has been stable since yesterday, does continue to experience some pain in his right foot. White blood cell count has normalized, vital signs are stable, and he has been afebrile. - Patient Data Vitals - most recent: Last Vital Signs Temp 95.5 F 06/04/16 07:11 Pulse 63 06/04/16 07:07 Resp 16 06/04/16 07:07 BP 111/60 06/04/16 07:07 Pulse Ox 96 06/04/16 07:07 Weight - most recent: 206 lb 6.4 oz I&O - last 24 hours: Intake & Output 06/03/16 06/04/16 06/04/16 22:59 06:59 14:59 Intake Total 1131 950 Balance 1131 950 Lab Results last 24 hrs: Laboratory Results - last 24 hr 06/04/16 06/04/16 Range/Units 05:57 05:57 WBC 10.9 (4.5-11.0) K/uL RBC 4.21 L (4.30-5.90) M/uL Hgb 12.1 (12.0-15.0) g/dL Hct 37.1 L (40.0-54.0) % MCV 88 (80-98) fL MCH 29 (27-31) pg MCHC 33 (32-36) % Plt Count 279 (150-400) K/uL Sodium 142 (140-148) mmol/L Potassium 4.3 (3.6-5.2) mmol/L Chloride 106 (100-108) mmol/L Carbon Dioxide 29 (21-32) mmol/L Anion Gap 7.4 (5.0-14.0) mmol/L BUN 18 (7-18) mg/dL Creatinine 1.0 (0.8-1.3) mg/dL Est Cr Clr Drug Dosing 80.83 mL/min Estimated GFR (MDRD) > 60 (>60) Glucose 107 H (74-106) mg/dL Calcium 8.1 L (8.5-10.1) mg/dL Total Bilirubin 0.3 (0.2-1.0) mg/dL AST 24 (15-37) U/L ALT 18 (12-78) U/L Alkaline Phosphatase 81 (46-116) U/L Total Protein 7.7 (6.4-8.2) g/dL Albumin 3.4 (3.4-5.0) g/dL Globulin 4.3 H (2.3-3.5) g/dL Albumin/Globulin Ratio 0.8 L (1.2-2.2) Med Orders - Current: Current Medications Amitriptyline HCl (Elavil) 25 mg PO BEDTIME PRN PRN Reason: Sleep Atorvastatin Calcium (Lipitor) 10 mg PO BEDTIME [facility] Last Admin: 06/03/16 20:36 Dose: 10 mg Dextrose (Glutose 15) 15 gm PO ONETIME PRN PRN Reason: Hypoglycemia Dextrose/Water (Dextrose 50% In Water) 50 ml IV ONETIME PRN PRN Reason: Hypoglycemia Enoxaparin Sodium (Lovenox) 40 mg SUBCUT BEDTIME [facility] Last Admin: 06/03/16 20:36 Dose: 40 mg Gabapentin (Neurontin) 800 mg PO TID [facility] Last Admin: 06/04/16 08:36 Dose: 800 mg Hydrochlorothiazide (Hydrochlorothiazide) 12.5 mg PO DAILY [facility] Last Admin: 06/04/16 09:09 Dose: 12.5 mg Ertapenem 1 gm/ Sodium (Chloride) 100 mls @ 200 mls/hr IV DAILY [facility] Stop: 06/18/16 12:01 Insulin Aspart (Novolog) 0 unit SUBCUT ASDIRECTED [facility] PRN Reason: Protocol Last Admin: 06/03/16 22:36 Dose: 2 unit Insulin Detemir (Levemir) 28 unit SUBCUT DAILY [facility] Last Admin: 06/04/16 08:42 Dose: 28 units Metformin HCl (Glucophage) 850 mg PO TIDM [facility] Last Admin: 06/04/16 07:56 Dose: 850 mg Morphine Sulfate (Ms Contin) 30 mg PO Q12H [facility] Last Admin: 06/04/16 08:50 Dose: 30 mg Morphine Sulfate (Ms Contin) 15 mg PO Q12H [facility] Last Admin: 06/04/16 08:50 Dose: 15 mg Nicotine (Habitrol) 14 mg TRDERM DAILY [facility] Last Admin: 06/04/16 08:35 Dose: 14 mg Pentoxifylline (Trental) 400 mg PO TID [facility] Last Admin: 06/04/16 08:39 Dose: 400 mg Quetiapine Fumarate (Seroquel) 0 mg PO BEDTIME PRN PRN Reason: Sleep Last Admin: 06/03/16 20:37 Dose: 100 mg Sodium Chloride (Saline Flush) 10 ml FLUSH ASDIRECTED PRN PRN Reason: Keep Vein Open Venlafaxine HCl (Effexor) 75 mg PO BID [facility] Last Admin: 06/04/16 09:09 Dose: 75 mg Discontinued Medications Enoxaparin Sodium (Lovenox) 40 mg SUBCUT DAILY [facility] Last Admin: 06/02/16 21:47 Dose: 40 mg Gadoteridol (Prohance) 20 ml IV . DIRECTED [facility] Stop: 06/02/16 15:01 Last Admin: 06/02/16 15:40 Dose: 19 ml Sodium Chloride (Normal Saline) 1,000 mls @ 25 mls/hr IV ASDIRECTED [facility] Piperacillin/Tazobactam/ (Dextrose 3.375 gm/ Premix) 50 mls @ 100 mls/hr IV Q6H [facility] Stop: 06/02/16 16:00 Last Admin: 06/02/16 17:29 Dose: 100 mls/hr Piperacillin/Tazobactam/ (Dextrose 3.375 gm/ Premix) 50 mls @ 100 mls/hr IV Q6H [facility] Last Admin: 06/04/16 08:03 Dose: 100 mls/hr Vancomycin HCl 1.8 gm/ Sodium (Chloride) 250 mls @ 150 mls/hr IV ONETIME ONE Stop: 06/02/16 17:39 Last Admin: 06/02/16 17:29 Dose: 150 mls/hr Vancomycin HCl 1.5 gm/ Sodium (Chloride) 250 mls @ 150 mls/hr IV Q12H [facility] Last Admin: 06/04/16 04:37 Dose: 150 mls/hr Lorazepam (Ativan) 0.5 mg IVPUSH ONETIME ONE Stop: 06/02/16 14:31 Last Admin: 06/02/16 14:26 Dose: 0.5 mg Lorazepam (Ativan) Confirm Administered Dose 2 mg .ROUTE .STK-MED ONE Stop: 06/02/16 14:24 Last Admin: 06/02/16 17:00 Dose: Not Given Nicotine (Habitrol) Confirm Administered Dose 14 mg .ROUTE .STK-MED ONE Stop: 06/02/16 18:10 Last Admin: 06/02/16 18:36 Dose: 14 mg Vancomycin HCl (Vancomycin) 0 gm IV .PHARMACY TO DOSE HARIS - Exam Quality Assessment: DVT prophylaxis General: alert, oriented, cooperative, no acute distress Lungs: Clear to auscultation, Normal respiratory effort Cardiovascular: Regular Rate, Regular Rhythm, No Murmurs Abdomen: bowel sounds present, soft, no tenderness, no distension - Problem List Review Problem List Initiated/Reviewed/Updated: Yes - My Orders Last 24 Hours: My Active Orders 06/03/16 18:14 Convert IV to Saline Lock [OM.PC] Routine 06/03/16 21:00 Enoxaparin [Lovenox] 40 mg SUBCUT BEDTIME 06/04/16 16:30 GLUCOSE POC LAB TO COLLECT [POC] QIDACANDBED 06/04/16 21:00 GLUCOSE POC LAB TO COLLECT [POC] QIDACANDBED 06/05/16 07:30 GLUCOSE POC LAB TO COLLECT [POC] QIDACANDBED 06/05/16 11:30 GLUCOSE POC LAB TO COLLECT [POC] QIDACANDBED 06/05/16 16:30 GLUCOSE POC LAB TO COLLECT [POC] QIDACANDBED 06/05/16 21:00 GLUCOSE POC LAB TO COLLECT [POC] QIDACANDBED 06/06/16 07:30 GLUCOSE POC LAB TO COLLECT [POC] QIDACANDBED 06/06/16 11:30 GLUCOSE POC LAB TO COLLECT [POC] QIDACANDBED 06/06/16 16:30 GLUCOSE POC LAB TO COLLECT [POC] QIDACANDBED 06/06/16 21:00 GLUCOSE POC LAB TO COLLECT [POC] QIDACANDBED 06/07/16 07:30 GLUCOSE POC LAB TO COLLECT [POC] QIDACANDBED 06/07/16 11:30 GLUCOSE POC LAB TO COLLECT [POC] QIDACANDBED 06/07/16 16:30 GLUCOSE POC LAB TO COLLECT [POC] QIDACANDBED 06/07/16 21:00 GLUCOSE POC LAB TO COLLECT [POC] QIDACANDBED 06/08/16 07:30 GLUCOSE POC LAB TO COLLECT [POC] QIDACANDBED 06/08/16 11:30 GLUCOSE POC LAB TO COLLECT [POC] QIDACANDBED 06/08/16 16:30 GLUCOSE POC LAB TO COLLECT [POC] QIDACANDBED 06/08/16 21:00 GLUCOSE POC LAB TO COLLECT [POC] QIDACANDBED 06/09/16 07:30 GLUCOSE POC LAB TO COLLECT [POC] QIDACANDBED 06/09/16 11:30 GLUCOSE POC LAB TO COLLECT [POC] QIDACANDBED 06/09/16 16:30 GLUCOSE POC LAB TO COLLECT [POC] QIDACANDBED 06/09/16 21:00 GLUCOSE POC LAB TO COLLECT [POC] QIDACANDBED 06/10/16 07:30 GLUCOSE POC LAB TO COLLECT [POC] QIDACANDBED 06/10/16 11:30 GLUCOSE POC LAB TO COLLECT [POC] QIDACANDBED 06/10/16 16:30 GLUCOSE POC LAB TO COLLECT [POC] QIDACANDBED 06/10/16 21:00 GLUCOSE POC LAB TO COLLECT [POC] QIDACANDBED 06/11/16 07:30 GLUCOSE POC LAB TO COLLECT [POC] QIDACANDBED 06/11/16 11:30 GLUCOSE POC LAB TO COLLECT [POC] QIDACANDBED 06/11/16 16:30 GLUCOSE POC LAB TO COLLECT [POC] QIDACANDBED 06/11/16 21:00 GLUCOSE POC LAB TO COLLECT [POC] QIDACANDBED 06/12/16 07:30 GLUCOSE POC LAB TO COLLECT [POC] QIDACANDBED 06/12/16 11:30 GLUCOSE POC LAB TO COLLECT [POC] QIDACANDBED 06/12/16 16:30 GLUCOSE POC LAB TO COLLECT [POC] QIDACANDBED 06/12/16 21:00 GLUCOSE POC LAB TO COLLECT [POC] QIDACANDBED 06/13/16 07:30 GLUCOSE POC LAB TO COLLECT [POC] QIDACANDBED 06/13/16 11:30 GLUCOSE POC LAB TO COLLECT [POC] QIDACANDBED - Plan Plan:: ASSESSMENT AND PLAN DIABETIC FOOT ULCER RIGHT FOOT-stable since admission, afebrile, white blood cell count improved. MRI showed evidence of cellulitis in the soft tissue of the right foot and possible osteomyelitis. Current plan is for conservative management, PICC line placement in 2 weeks of IV antibiotic therapy with Invanz. -2 weeks of IV antibiotic therapy with Invanz -PICC line placement -Saline lock IV -Surgical followup per Dr. Robbins TYPE 2 DIABETES [id number] with history of very poor control and noncompliance. -Continue outpatient dose of long-acting insulin -Continue outpatient dose of NovoLog with each meal -Sliding scale NovoLog -4 times a day glucometers MAINTENANCE ISSUES -DVT prophylaxis; Lovenox 40 mg subcutaneous daily -GI prophylaxis; not required -Colon catheter; not indicated -Nutrition; diabetic diet -Nicotine dependence; nicotinic patch CODE STATUS-FULL CODE ADMISSION STATUS-patient will be admitted to inpatient status, expect at least a 2 night hospital stay for evaluation and management of problems as outlined above. At the time of this admission I do not reasonably expected evaluation and management of this problem will require more than a 96 hour hospital stay. DISPOSITION-anticipate discharge to home after the hospital stay. PRIMARY CARE PROVIDER-Dr. Jara
[2016-06-04] MEDS: Insulin Aspart 100 Units/ML 3 ML Pen SUBCUT SCH ×3 (13:15→21:11)
[2016-06-04] MEDS: Ertapenem 1 GM in Sodium Chloride 0.9% 100 ML IV SCH (14:18)
[2016-06-04] MEDS: Enoxaparin 40 MG/0.4 ML Syringe SUBCUT SCH (21:00)
[2016-06-04] MEDS: atorvaSTATin 10 MG Tab PO SCH (21:01)
[2016-06-04] MEDS: QUEtiapine 25 MG Tab PO PRN (22:50)
--- NOTE | 2016-06-05 08:54 | CR ---
Chest 1V Frontal HISTORY: PICC line placed COMPARISON: 04/09/2013 FINDINGS: Lungs appear clear and normally aerated. Cardiomediastinal silhouette is within normal limits. No va scular redistribution or pleural fluid can be seen. PICC line has been placed from a right brachial approach. The tip overlies the mid superior vena cava. There is no pneumothorax or other complicatio n. Bony structures and soft tissues are unremarkable. IMPRESSION: PICC line has been place with tip overlying the mid SVC. No acute chest abnormality identified.
[2016-06-05] MEDS: Insulin Detemir 100 Units/ML 3 ML Pen SUBCUT SCH (09:16)
[2016-06-05] MEDS: Nicotine 14 MG/24 Hr Patch TRDERM SCH (09:18)
[2016-06-05] MEDS: Venlafaxine 75 MG Tab PO SCH (09:18)
[2016-06-05] MEDS: Hydrochlorothiazide 12.5 MG Cap PO SCH (09:19)
[2016-06-05] MEDS: Morphine 15 MG Tab.ER PO SCH (09:20)
[2016-06-05] MEDS: Morphine 30 MG Tab.ER PO SCH (09:21)
[2016-06-05] MEDS: Gabapentin 400 MG Cap PO SCH ×2 (09:21→13:38)
[2016-06-05] MEDS: Pentoxifylline 400 MG Tab.ER PO SCH ×2 (09:22→13:38)
[2016-06-05 11:21] VITALS: BP 122/70
[2016-06-05] MEDS: Insulin Aspart 100 Units/ML 3 ML Pen SUBCUT SCH (12:08)
--- NOTE | 2016-06-05 13:13 | PCM.DCSUM1 ---
Discharge Summary - Hospital Course Brief History: Mr. Fry is a 65-year-old gentleman who was admitted as a direct admission from the clinic for management of a diabetic foot infection and ulcer on his right foot. - Discharge Data Discharge Date: 06/05/16 Discharge Disposition: Home, Self-Care 01 Condition: Fair - Discharge Diagnosis/Problem(s) (1) Diabetic foot ulcer SNOMED Code(s): 349698115 ICD Code: E11.621 - TYPE 2 DIABETES MELLITUS WITH FOOT ULCER; L97.509 - NON- PRESSURE CHRONIC ULCER OTH PRT UNSP FOOT W UNSP SEVERITY Status: Acute Current Visit: Yes (2) Diabetes mellitus type 2 SNOMED Code(s): 78402603 ICD Code: E11.9 - TYPE 2 DIABETES MELLITUS WITHOUT COMPLICATIONS Status: Chronic Current Visit: No (3) Diabetic peripheral neuropathy SNOMED Code(s): 016854768, 091279975 ICD Code: E11.42 - TYPE 2 DIABETES MELLITUS WITH DIABETIC POLYNEUROPATHY Status: Chronic Current Visit: No - Patient Summary/Data Consults: Consultations 06/02/16 13:40 Consult to Physician [CONS] Routine Consulting Provider: Sami Raines Call Completed to Consulting Physician: Yes Reason for Consult: medical management Person Notified: Yanna Date Notified: 06/02/16 Time Notified: 13:46 Special Instructions: notified per Dr. Tuttle Hospital Course: Mr. Fry is a 65-year-old gentleman who was admitted as a direct admission from the clinic for further management of a diabetic foot ulcer and infection on his right foot. He has a known history of diabetes as well as peripheral arterial disease and is had previous ulcers requiring surgical interventions and amputation of toes. He is been found in the clinic for an ulcer on the lateral aspect of the right foot, when seen on the day of admission was noted to have mike pus from the ulcer. X-ray obtained at the clinic showed no evidence of osteomyelitis. On admission he was given IV antibiotic therapy with meropenem and vancomycin. Initially his white blood cell count was elevated but had decreased to normal by the time of discharge with obvious improvement of the cellulitis of his foot. MRI was obtained and suggested osteomyelitis of the third metatarsal, this was somewhat unusual is that the osteomyelitis does not appear to be in the area of current infection. He was seen and followed from a surgical standpoint by Dr. Robbins. Because of his significant vascular disease decision was made to try and treat the infection conservatively rather than proceed with surgical intervention. You will be discharged to home on a 12 day course of IV antibiotic therapy with Selene. He will come into the outpatient area the hospital daily to have his IV infusion. Followup appointment will be scheduled in the clinic first part of next week. Activity will be as tolerated and he will resume his usual diet. We did monitor his diabetes throughout the hospital stay and blood sugars remained fairly good especially prior to discharge. He will resume his usual insulin regimen after discharge. - Patient Instructions Diet: Diabetic Diet Activity: As Tolerated Other/Special Instructions: Followup appointment with Dr. Tuttle early next week. Daily antibiotic infusion with Selene, outpatient, x12 days. - Discharge Plan Home Medications: Home Meds Insulin Glargine,Hum.Rec.Anlog [Lantus Solostar] 28 units SQ DAILY 03/14/13 [ History] metFORMIN [Glucophage] 850 mg PO TIDM 03/14/13 [History] Venlafaxine [Effexor] 75 mg PO BID 10/12/13 [History] atorvaSTATin [Lipitor] 10 mg PO BEDTIME 10/12/13 [History] Amitriptyline [Elavil] 25 mg PO BEDTIME PRN 10/16/15 [History] Gabapentin [Neurontin] 800 mg PO TID 10/16/15 [History] Hydrochlorothiazide [Microzide] 12.5 mg PO DAILY 10/16/15 [History] Mupirocin Calcium [Bactroban] 1 applic TP TID 10/16/15 [History] Pentoxifylline [TRENtal] 400 mg PO TID 10/16/15 [History] QUEtiapine [SEROquel] 1 - 2 mg PO BEDTIME PRN 10/16/15 [History] Morphine [MS Contin] 15 mg PO Q12HR 06/02/16 [History] Morphine [MS Contin] 30 mg PO Q12HR 06/02/16 [History] Ertapenem [INVanz] 1 gm IV Q24H #12 vial 06/05/16 [Rx] Patient Handouts: PICC Home Guide Referrals: Prabhu Tuttle DPM [Physician] - 06/10/16 9:15 am (Dr Tuttle appointment ) - Patient Data Vitals - Most Recent: Last Vital Signs Temp 96.4 F 06/05/16 11:19 Pulse 71 06/05/16 11:19 Resp 16 06/05/16 11:19 BP 122/70 06/05/16 11:19 Pulse Ox 96 06/05/16 11:19 Weight - Most Recent: 206 lb 6.4 oz I&O - Last 24 hours: Intake & Output 06/04/16 06/05/16 06/05/16 22:59 06:59 14:59 Intake Total 720 Balance 720 Med Orders - Current: Current Medications Amitriptyline HCl (Elavil) 25 mg PO BEDTIME PRN PRN Reason: Sleep Last Admin: 06/04/16 22:50 Dose: 25 mg Atorvastatin Calcium (Lipitor) 10 mg PO BEDTIME [facility] Last Admin: 06/04/16 21:01 Dose: 10 mg Dextrose (Glutose 15) 15 gm PO ONETIME PRN PRN Reason: Hypoglycemia Dextrose/Water (Dextrose 50% In Water) 50 ml IV ONETIME PRN PRN Reason: Hypoglycemia Enoxaparin Sodium (Lovenox) 40 mg SUBCUT BEDTIME [facility] Last Admin: 06/04/16 21:00 Dose: 40 mg Gabapentin (Neurontin) 800 mg PO TID [facility] Last Admin: 06/05/16 09:21 Dose: 800 mg Hydrochlorothiazide (Hydrochlorothiazide) 12.5 mg PO DAILY [facility] Last Admin: 06/05/16 09:19 Dose: 12.5 mg Ertapenem 1 gm/ Sodium (Chloride) 100 mls @ 200 mls/hr IV Q24H [facility] Stop: 06/05/16 21:00 Last Admin: 06/04/16 14:18 Dose: 200 mls/hr Insulin Aspart (Novolog) 0 unit SUBCUT ASDIRECTED [facility] PRN Reason: Protocol Last Admin: 06/05/16 12:08 Dose: 6 unit Insulin Detemir (Levemir) 28 unit SUBCUT DAILY [facility] Last Admin: 06/05/16 09:16 Dose: 28 units Metformin HCl (Glucophage) 850 mg PO TIDM [facility] Last Admin: 06/05/16 09:15 Dose: 850 mg Morphine Sulfate (Ms Contin) 30 mg PO Q12H [facility] Last Admin: 06/05/16 09:21 Dose: 30 mg Morphine Sulfate (Ms Contin) 15 mg PO Q12H [facility] Last Admin: 06/05/16 09:20 Dose: 15 mg Nicotine (Habitrol) 14 mg TRDERM DAILY [facility] Last Admin: 06/05/16 09:18 Dose: 14 mg Pentoxifylline (Trental) 400 mg PO TID [facility] Last Admin: 06/05/16 09:22 Dose: 400 mg Quetiapine Fumarate (Seroquel) 0 mg PO BEDTIME PRN PRN Reason: Sleep Last Admin: 06/04/16 22:50 Dose: 100 mg Sodium Chloride (Saline Flush) 10 ml FLUSH ASDIRECTED PRN PRN Reason: Keep Vein Open Venlafaxine HCl (Effexor) 75 mg PO BID [facility] Last Admin: 06/05/16 09:18 Dose: 75 mg Discontinued Medications Enoxaparin Sodium (Lovenox) 40 mg SUBCUT DAILY [facility] Last Admin: 06/02/16 21:47 Dose: 40 mg Gadoteridol (Prohance) 20 ml IV . DIRECTED [facility] Stop: 06/02/16 15:01 Last Admin: 06/02/16 15:40 Dose: 19 ml Sodium Chloride (Normal Saline) 1,000 mls @ 25 mls/hr IV ASDIRECTED [facility] Piperacillin/Tazobactam/ (Dextrose 3.375 gm/ Premix) 50 mls @ 100 mls/hr IV Q6H [facility] Stop: 06/02/16 16:00 Last Admin: 06/02/16 17:29 Dose: 100 mls/hr Piperacillin/Tazobactam/ (Dextrose 3.375 gm/ Premix) 50 mls @ 100 mls/hr IV Q6H [facility] Last Admin: 06/04/16 08:03 Dose: 100 mls/hr Vancomycin HCl 1.8 gm/ Sodium (Chloride) 250 mls @ 150 mls/hr IV ONETIME ONE Stop: 06/02/16 17:39 Last Admin: 06/02/16 17:29 Dose: 150 mls/hr Vancomycin HCl 1.5 gm/ Sodium (Chloride) 250 mls @ 150 mls/hr IV Q12H [facility] Last Admin: 06/04/16 04:37 Dose: 150 mls/hr Lorazepam (Ativan) 0.5 mg IVPUSH ONETIME ONE Stop: 06/02/16 14:31 Last Admin: 06/02/16 14:26 Dose: 0.5 mg Lorazepam (Ativan) Confirm Administered Dose 2 mg .ROUTE .STK-MED ONE Stop: 06/02/16 14:24 Last Admin: 06/02/16 17:00 Dose: Not Given Nicotine (Habitrol) Confirm Administered Dose 14 mg .ROUTE .STK-MED ONE Stop: 06/02/16 18:10 Last Admin: 06/02/16 18:36 Dose: 14 mg Vancomycin HCl (Vancomycin) 0 gm IV .PHARMACY TO DOSE [facility] *Q Meaningful Use (DIS) - VTE *Q VTE Criteria *Q: - Stroke *Q Stroke Criteria *Q: - AMI *Q AMI Criteria *Q:
[2016-06-05] MEDS: Ertapenem 1 GM in Sodium Chloride 0.9% 100 ML IV SCH (13:29)
== END 2016-06-05 14:45 | disposition home or self-care (01) | DRG 638 ==
LOC: JP.MS 13:15
PROVIDERS: ADMIT Hospitalist; ATTEND Hospitalist
DX: E11.621 Type 2 diabetes mellitus with foot ulcer (principal); L03.115 Cellulitis of right lower limb; M86.9 Osteomyelitis, unspecified; L97.519 Non-pressure chronic ulcer of other part of right foot with unspecified severity; Z79.4 Long term (current) use of insulin; E11.42 Type 2 diabetes mellitus with diabetic polyneuropathy; E11.628 Type 2 diabetes mellitus with other skin complications; I73.89 Other specified peripheral vascular diseases; F17.210 Nicotine dependence, cigarettes, uncomplicated; I10 Essential (primary) hypertension; Z91.19 Patient's noncompliance with other medical treatment and regimen; E11.69 Type 2 diabetes mellitus with other specified complication; Z79.2 Long term (current) use of antibiotics; H54.7 Unspecified visual loss; Z89.422 Acquired absence of other left toe(s); Z89.421 Acquired absence of other right toe(s)
CPT/HCPCS: 36415; 71010; 71010-26; 73720-26-RT; 73720-RT; 80048; 80053; 82962; 85025; 85027; 85651; 86140; A9270-GY; A9576; J1335; J1650; J2060; J2543; J3370; J7030; J7050

== ENCOUNTER 2019-05-16 15:54 | Observation (INO) | payer MEDICARE, OTHER ==
[2019-05-16] MEDS ORDERED: Sodium Chloride 0.9% 10 ML Syringe FLUSH PRN ×2 (16:05→20:37)
--- NOTE | 2019-05-16 16:24 | EDM.PDOC ---
ED HPI GENERAL MEDICAL PROBLEM - General Chief Complaint: Neuro Symptoms/Deficits Stated Complaint: MEDICAL VIA [place] Time Seen by Provider: 05/16/19 16:20 Source of Information: Reports: Patient History Limitations: Reports: No Limitations - History of Present Illness INITIAL COMMENTS - FREE TEXT/NARRATIVE: pt was seen by Dr Jara today. He was concerned about a stroke. At that time he was quite vague and he had a possible facial droop. Onset: Today Duration: Hour(s): Location: Reports: Head, Other (pt has known and chronic weakness in both lower extremities. ) Associated Symptoms: Reports: Weakness, Other (pt has not been taking his insulin and his bs is over 500. ) Bilateral Feet Pain Score (Numeric/FACES): 10 - Related Data Allergies Allergy/AdvReac Type Severity Reaction Status Date / Time No Known Allergies Allergy Verified 05/16/19 16:10 Home Meds: Home Meds Insulin Glargine,Hum.Rec.Anlog [Lantus Solostar] 28 units SQ DAILY 03/14/13 [ History] Morphine [MS Contin] 15 mg PO TID PRN 06/02/16 [History] Aspirin [Lo-Dose Aspirin EC] 81 mg PO DAILY 05/16/19 [History] Past Medical History HEENT History: Reports: Impaired Vision Other HEENT History: wears glasses-wolfe not have them with Cardiovascular History: Reports: Hypertension Respiratory History: Reports: None Gastrointestinal History: Reports: None Genitourinary History: Reports: None Musculoskeletal History: Reports: Amputation, Other (See Below) Other Musculoskeletal History: spinal stenosis, carpal tunnel , lumbar stenosis , toe amputations on both feet Neurological History: Reports: None Psychiatric History: Reports: Depression Endocrine/Metabolic History: Reports: Diabetes, Type II Hematologic History: Reports: None Immunologic History: Reports: None, Other (See Below) Other Immunologic History: infections in L foot Oncologic (Cancer) History: Reports: None Other Dermatologic History: diabetic ulcer - Infectious Disease History Infectious Disease History: Reports: Chicken Pox - Past Surgical History Head Surgeries/Procedures: Reports: None HEENT Surgical History: Reports: Oral Surgery Cardiovascular Surgical History: Reports: Other (See Below) Other Cardiovascular Surgeries/Procedures: stent in the leg Respiratory Surgical History: Reports: None Neurological Surgical History: Reports: None Musculoskeletal Surgical History: Reports: Amputation, Carpal Tunnel Social & Family History - Family History Family Medical History: Noncontributory - Caffeine Use Caffeine Use: Reports: Soda ED ROS GENERAL - Review of Systems Review Of Systems: See Below Constitutional: Reports: Weakness HEENT: Reports: No Symptoms Respiratory: Reports: No Symptoms, Other (pt has copd) Cardiovascular: Reports: No Symptoms Endocrine: Reports: High Glucose, Other (pt has a bs greater than 500. ) GI/Abdominal: Reports: No Symptoms : Reports: No Symptoms Musculoskeletal: Reports: No Symptoms Skin: Reports: No Symptoms ED EXAM, NEURO - Physical Exam Exam: See Below Text/Narrative:: pt was sent from the clinic because of a possible facial deviation and slurred sopeech. Dr Jara was concerned about a stroke. He also had a bs of greater than 500. He quit taking his insulin a while bs . He is not sure when. He has alot of weakness in both lower extremities. Exam Limited By: No Limitations General Appearance: Alert, Anxious, Mild Distress, Other (pupils are equal and reactive. ) Ears: Normal TMs Nose: Normal Inspection Throat/Mouth: Other (mouth was very dry. ) Head Exam: Atraumatic Neck: Normal Inspection Respiratory/Chest: No Respiratory Distress Cardiovascular: Regular Rate, Rhythm GI/Abdominal: Soft, Non-Tender (Male) Exam: Deferred Rectal (Males) Exam: Deferred Neurological: Alert Back Exam: Normal Inspection Extremities: Normal Inspection Psychiatric: Normal Affect Course - Vital Signs Last Recorded V/S: Last Vital Signs Temp 35.8 C L 05/17/19 06:44 Pulse 66 05/17/19 06:44 Resp 18 05/17/19 06:44 BP 133/57 L 05/17/19 06:44 Pulse Ox 95 05/17/19 06:44 - Orders/Labs/Meds Orders: Active Orders 24 hr Category Date Time Status Chest 1V Frontal [CR] Stat Exams 05/16/19 16:56 Taken EKG 12 Lead [EK] Routine Ther 05/16/19 16:04 Stop Req Medication Orders Acetaminophen (Tylenol) 650 mg PO Q4H PRN PRN Reason: Pain (Mild 1-3)/fever Last Admin: 05/16/19 22:07 Dose: 650 mg Aspirin (Halfprin) 81 mg PO DAILY [facility] Dextrose (Glutose 15) 15 gm PO ONETIME PRN PRN Reason: Hypoglycemia Dextrose/Water (Dextrose 50% In Water) 50 ml IV ONETIME PRN PRN Reason: Hypoglycemia Enoxaparin Sodium (Lovenox) 40 mg SUBCUT BEDTIME [facility] Sodium Chloride (Normal Saline) 1,000 mls @ 125 mls/hr IV ASDIRECTED [facility] Last Admin: 05/17/19 03:39 Dose: 125 mls/hr Infusion: 05/17/19 03:39 Dose: 125 mls/hr Admin: 05/16/19 22:09 Dose: 125 mls/hr Influenza Virus Vaccine (Fluzone High-Dose Syringe) 180 mcg IM .ONCE ONE Stop: 05/17/19 10:01 Insulin Glargine (Lantus Solostar) 28 units SUBCUT DAILY [facility] Last Admin: 05/16/19 22:05 Dose: 28 units Insulin Human Lispro (Humalog) 0 unit SUBCUT QIDACANDBED [facility]; Protocol Last Admin: 05/16/19 21:33 Dose: 1 unit Melatonin (Melatonin) 6 mg PO BEDTIME PRN PRN Reason: Sleep Last Admin: 05/16/19 22:05 Dose: 6 mg Metformin HCl (Glucophage) 1,000 mg PO BIDMEALS [facility] Morphine Sulfate (Ms Contin) 15 mg PO TID PRN PRN Reason: Pain Last Admin: 05/16/19 22:04 Dose: 15 mg Nicotine (Habitrol) 14 mg TRDERM DAILY [facility] Last Admin: 05/16/19 21:34 Dose: 14 mg Ondansetron HCl (Zofran) 4 mg IV Q4H PRN PRN Reason: Nausea/Vomiting Polyethylene Glycol (Miralax) 17 gm PO DAILY PRN PRN Reason: Constipation Sodium Chloride (Saline Flush) 10 ml FLUSH ASDIRECTED PRN PRN Reason: Keep Vein Open Labs: Laboratory Tests 05/16/19 Range/Units 16:04 VBG pH 7.407 (7.350-7.450) Meds: Medications Generic Name Dose Route Start Last Admin Trade Name Freq PRN Reason Stop Dose Admin Acetaminophen 650 mg 05/16/19 20:37 05/16/19 22:07 Tylenol PO 650 mg Q4H PRN Administration Pain (Mild 1-3)/fever Aspirin 81 mg 05/17/19 09:00 Halfprin PO DAILY [facility] Dextrose 15 gm 05/16/19 20:37 Glutose 15 PO ONETIME PRN Hypoglycemia Dextrose/Water 50 ml 05/16/19 20:37 Dextrose 50% In Water IV ONETIME PRN Hypoglycemia Enoxaparin Sodium 40 mg 05/17/19 21:00 Lovenox SUBCUT BEDTIME [facility] Sodium Chloride 1,000 mls @ 125 mls/hr 05/16/19 20:37 05/17/19 03:39 Normal Saline IV 125 mls/hr ASDIRECTED [facility] Administration Influenza Virus Vaccine 180 mcg 05/17/19 10:00 Fluzone High-Dose Syringe IM 05/17/19 10:01 .ONCE ONE Insulin Glargine 28 units 05/16/19 20:37 05/16/19 22:05 Lantus Solostar SUBCUT 28 units DAILY [facility] Administration Insulin Human Lispro 0 unit 05/16/19 20:37 05/16/19 21:33 Humalog SUBCUT 1 unit QIDACANDBED [facility] Administration Protocol Melatonin 6 mg 05/16/19 21:12 05/16/19 22:05 Melatonin PO 6 mg BEDTIME PRN Administration Sleep Metformin HCl 1,000 mg 05/17/19 08:00 Glucophage PO BIDMEALS [facility] Morphine Sulfate 15 mg 05/16/19 21:37 05/16/19 22:04 Ms Contin PO 15 mg TID PRN Administration Pain Nicotine 14 mg 05/16/19 21:15 05/16/19 21:34 Habitrol TRDERM 14 mg DAILY [facility] Administration Ondansetron HCl 4 mg 05/16/19 20:37 Zofran IV Q4H PRN Nausea/Vomiting Polyethylene Glycol 17 gm 05/16/19 20:37 Miralax PO DAILY PRN Constipation Sodium Chloride 10 ml 05/16/19 20:37 Saline Flush FLUSH ASDIRECTED PRN Keep Vein Open Discontinued Medications Generic Name Dose Route Start Last Admin Trade Name Freq PRN Reason Stop Dose Admin Enoxaparin Sodium 40 mg 05/16/19 21:45 05/16/19 22:08 Lovenox SUBCUT 40 mg DAILY [facility] Administration Sodium Chloride 1,000 mls @ 999 mls/hr 05/16/19 16:30 05/16/19 16:20 Normal Saline IV 999 mls/hr ASDIRECTED [facility] Administration Sodium Chloride 1,000 mls @ 999 mls/hr 05/16/19 18:45 Normal Saline IV ASDIRECTED [facility] Influenza Virus Vaccine 1 each 05/17/19 10:00 Pharmacy To Dose - Influenza Vaccine IM 05/17/19 10:01 ONETIME ONE Insulin Human Regular 3 unit 05/16/19 16:57 05/16/19 18:13 Humulin R IVPUSH 05/16/19 16:58 3 units ONETIME ONE Administration Insulin Human Regular 7 unit 05/16/19 16:57 05/16/19 18:15 Humulin R SUBCUT 05/16/19 16:58 7 units ONETIME ONE Administration Morphine Sulfate 15 mg 05/16/19 21:00 05/16/19 23:14 Ms Contin PO Not Given TID [facility] Sodium Chloride 10 ml 05/16/19 16:05 05/16/19 16:08 Saline Flush FLUSH 10 ml ASDIRECTED PRN Administration Keep Vein Open - Re-Assessments/Exams Free Text/Narrative Re-Assessment/Exam: pt was given iv and subq insulin. He had fluids running at 999/ 05/16/19 18:40 pt had a cat scan of the head which was normal. 05/16/19 18:42 05/17/19 07:30 pt later stated that he thinks some of his symptoms started about 2 weeks ago. Departure - Departure Time of Disposition: 18:42 Disposition: Admitted As Inpatient 66 Condition: Fair Clinical Impression: Hyperglycemia, Dehydration, Stroke - Discharge Information Sepsis Event Note - Focused Exam Date Exam was Performed: 05/17/19 Time Exam was Performed: 07:30 - My Orders Last 24 Hours: My Active Orders 05/16/19 16:04 EKG 12 Lead [EK] Routine 05/16/19 16:56 Chest 1V Frontal [CR] Stat - Assessment/Plan Last 24 Hours: My Active Orders 05/16/19 16:04 EKG 12 Lead [EK] Routine 05/16/19 16:56 Chest 1V Frontal [CR] Stat
[2019-05-16] MEDS ORDERED: Sodium Chloride 0.9% 1,000 ML IV SCH ×2 (16:30→18:45)
--- NOTE | 2019-05-16 16:51 | CRLCT ---
Indication: Lethargy, slurred speech, hyperglycemia, possible stroke Technique: Nonenhanced axial CT imaging through the head. Coronal reconstructions are provided. Comparison: CT head without contrast 03/29/2018 Findings: There is no intracranial hemorrhage, edema, or mass effect. Cam-white matter differentiation is preserved. The ventricles are normal in size. The basal cisterns are patent. Intracranial atherosclerotic disease is present. The calvarium is intact. The visualized paranasal sinuses and mastoid air cells are aerated. Impression: No intracranial hemorrhage or loss of cam-white matter differentiation. Please note that all CT scans at this facility use dose modulation, iterative reconstruction, and/or weight-based dosing when appropriate to reduce radiation dose to as low as reasonably achievable. Dictated by Chato Irwin MD @ May 16 2019 4:43PM Signed by Dr. Chato Irwin @ May 16 2019 4:49PM
[2019-05-16] MEDS ORDERED: Insulin Regular, Human 100 Units/ML 3 ML Vial IVPUSH ONE (16:57)
[2019-05-16] MEDS ORDERED: Insulin Regular, Human 100 Units/ML 3 ML Vial SUBCUT ONE (16:57)
--- NOTE | 2019-05-16 19:55 | PCM.HP.2 ---
H&P History of Present Illness - General Date of Service: 05/16/19 Admit Problem/Dx: Admission Diagnosis/Problem Admission Diagnosis/Problem Hyperglycemia Source of Information: Patient, Old Records, Provider, RN Notes Reviewed History Limitations: Reports: No Limitations - History of Present Illness Initial Comments - Free Text/Narative: Mr. Fry is a 68-year-old gentleman who was admitted to observation status to the emergency department for further evaluation of expressive a aphasia of 2 weeks duration and uncontrolled type 2 diabetes mellitus with hyperglycemia. Mr. Fry longstanding history of type 2 diabetes mellitus. He reports that he is not taken his insulin for at least the past 2 months as he has been unable to afford it. 2 weeks ago he noted significant difficulty with his speech, very garbled and unable to get words out that he wanted to say. It has slowly improved since then but is not yet back to normal. He denies any other focal neurologic symptoms at the present time. He was seen and evaluated the clinic today and his blood sugar was noted to be 550. He was referred to the emergency department for further evaluation. CT scan of the head shows no evidence of acute bleed or other acute abnormalities. He also has an ulcer on the lateral aspect of his left foot. Bilateral Feet Pain Score (Numeric/FACES): 10 - Related Data Allergies/Adverse Reactions: Allergies Allergy/AdvReac Type Severity Reaction Status Date / Time No Known Allergies Allergy Verified 05/16/19 16:10 Home Medications: Home Meds Insulin Glargine,Hum.Rec.Anlog [Lantus Solostar] 28 units SQ DAILY 03/14/13 [ History] Morphine [MS Contin] 15 mg PO Q12HR 06/02/16 [History] Morphine [MS Contin] 15 mg PO TID 06/02/16 [History] Aspirin [Lo-Dose Aspirin EC] 81 mg PO DAILY 05/16/19 [History] Past Medical History HEENT History: Reports: Impaired Vision Other HEENT History: wears glasses-wolfe not have them with Cardiovascular History: Reports: Hypertension Respiratory History: Reports: None Gastrointestinal History: Reports: None Genitourinary History: Reports: None Musculoskeletal History: Reports: Amputation, Other (See Below) Other Musculoskeletal History: spinal stenosis, carpal tunnel , lumbar stenosis , toe amputations on both feet Neurological History: Reports: None Other Neuro History: claudication Psychiatric History: Reports: Depression Other Psychiatric History: personality disorder insomnia Endocrine/Metabolic History: Reports: Diabetes, Type II Hematologic History: Reports: None Immunologic History: Reports: None, Other (See Below) Other Immunologic History: infections in L foot Oncologic (Cancer) History: Reports: None Other Dermatologic History: diabetic ulcer - Infectious Disease History Infectious Disease History: Reports: Chicken Pox - Past Surgical History Head Surgeries/Procedures: Reports: None HEENT Surgical History: Reports: Oral Surgery Cardiovascular Surgical History: Reports: Other (See Below) Other Cardiovascular Surgeries/Procedures: stent in the leg Respiratory Surgical History: Reports: None Neurological Surgical History: Reports: None Musculoskeletal Surgical History: Reports: Amputation, Carpal Tunnel Social & Family History - Family History Family Medical History: Noncontributory - Tobacco Use Smoking Status *Q: Current Every Day Smoker Years of Tobacco use: 47 Packs/Tins Daily: 0.5 Used Tobacco, but Quit: No - Caffeine Use Caffeine Use: Reports: Soda - Alcohol Use Days Per Week of Alcohol Use: 0 - Recreational Drug Use Recreational Drug Use: No H&P Review of Systems - Review of Systems: Review Of Systems: See Below General: Reports: Malaise, Weakness, Fatigue. Denies: Fever, Chills HEENT: Reports: No Symptoms Pulmonary: Reports: No Symptoms Cardiovascular: Reports: No Symptoms Gastrointestinal: Reports: No Symptoms Genitourinary: Reports: No Symptoms Musculoskeletal: Reports: No Symptoms Skin: Reports: Other (Ulcer left lateral foot) Psychiatric: Reports: No Symptoms Neurological: Reports: Trouble Speaking (Expressive aphasia for 2 weeks, slowly improving), Change in Speech Hematologic/Lymphatic: Reports: No Symptoms Immunologic: Reports: No Symptoms Exam - Exam Exam: See Below - Vital Signs Vital Signs: Last Vital Signs Temp 98.5 F 05/16/19 16:41 Pulse 98 05/16/19 17:40 Resp 13 05/16/19 16:41 BP 147/72 H 05/16/19 17:40 Pulse Ox 96 05/16/19 17:40 Weight: 176 lb - Exam Quality Assessment: DVT Prophylaxis General: Alert, Oriented, Cooperative, Mild Distress HEENT: Conjunctiva Clear, Hearing Intact, Normal Nasal Septum, Posterior Pharynx Clear, Pupils Equal. No: Mucosa Moist & [place] Neck: Supple, Trachea Midline, +2 Carotid Pulse wo Bruit Lungs: Clear to Auscultation, Normal Respiratory Effort, Decreased Breath Sounds Cardiovascular: Regular Rate, Regular Rhythm, Normal S1, Normal S2. No: Systolic Murmur, Diastolic Murmur GI/Abdominal Exam: Soft, Non-Tender, No Organomegaly, No Distention Back Exam: Normal Inspection, Full Range of Motion Extremities: Non-Tender, No Pedal Edema, Other (1 cm ulcer left lateral foot) Skin: Warm, Dry Neurological: Cranial Nerves Intact, Strength Equal Bilateral, Normal Tone, Sensation Intact. No: Normal Speech (Mild expressive aphasia) Neuro Extensive - Mental Status: Alert, Oriented x3, Normal Mood/Affect, Normal Cognition, Memory Intact - Patient Data Lab Results Last 24 hrs: Laboratory Results - last 24 hr 05/16/19 Range/Units 16:04 VBG pH 7.407 (7.350-7.450) Sepsis Event Note - Evaluation Sepsis Screening Result: No Definite Risk - Focused Exam Vital Signs: Vital Signs Temp Pulse Resp BP Pulse Ox 05/16/19 17:40 98 147/72 H 96 05/16/19 17:04 94 129/71 96 05/16/19 16:50 101 H 135/74 99 05/16/19 16:41 98.5 F 104 H 13 149/75 H 98 05/16/19 16:07 98.5 F 104 H 13 149/75 H 98 Date Exam was Performed: 05/16/19 Time Exam was Performed: 19:50 *Q Meaningful Use (ADM) - VTE Risk Assess *Q Each Risk Factor Represents 1 Point: Abnormal Pulmonary Function (COPD) Total Score 1 Point Risk Factors: 1 Each Risk Factor Represents 2 Points: Age 60 - 74 Years Total Score 2 Point Risk Factors: 2 Each Risk Factor Represents 3 Points: None Total Score 3 Point Risk Factors: 0 Each Risk Factor Represents 5 Points: None Total Score 5 Point Risk Factors: 0 Venous Thromboembolism Risk Factor Score *Q: 3 Problem List Initiated/Reviewed/Updated: Yes Orders Last 24hrs: Active Orders 24 hr Category Date Time Status Patient Status Manage Transfer [TRANSFER] Routine ADT 05/16/19 19:35 Active EKG Documentation Completion [RC] ASDIRECTED Care 05/16/19 16:04 Active Chest 1V Frontal [CR] Stat Exams 05/16/19 16:56 Taken UA W/MICROSCOPIC [URIN] Urgent Lab 05/16/19 16:55 Ordered Sodium Chloride 0.9% [Normal Saline] 1,000 ml Med 05/16/19 16:30 Active IV ASDIRECTED Sodium Chloride 0.9% [Normal Saline] 1,000 ml Med 05/16/19 18:45 Active IV ASDIRECTED Sodium Chloride 0.9% [Saline Flush] Med 05/16/19 16:05 Active 10 ml FLUSH ASDIRECTED PRN Saline Lock Insert [OM.PC] Routine Oth 05/16/19 16:05 Ordered Resuscitation Status Routine Resus Stat 05/16/19 19:38 Ordered EKG 12 Lead [EK] Routine Ther 05/16/19 16:04 Ordered Medication Orders Sodium Chloride (Normal Saline) 1,000 mls @ 999 mls/hr IV ASDIRECTED HARIS Last Admin: 05/16/19 16:20 Dose: 999 mls/hr Sodium Chloride (Normal Saline) 1,000 mls @ 999 mls/hr IV ASDIRECTED HARIS Sodium Chloride (Saline Flush) 10 ml FLUSH ASDIRECTED PRN PRN Reason: Keep Vein Open Last Admin: 05/16/19 16:08 Dose: 10 ml Assessment/Plan Comment:: ASSESSMENT AND PLAN HYPERGLYCEMIA SECONDARY TO UNCONTROLLED TYPE 2 DIABETES MELLITUS-not been taking his insulin for at least the past 2 months, marked hyperglycemia and dehydration noted on evaluation. -4 times daily glucometers -adult educator consult -Resume Lantus insulin 28 units subcu daily -Metformin 1000 mg p.o. twice daily -Low-dose sliding scale Humalog EXPRESSIVE APHASIA-present now for about 2 weeks, slowly improved over that time. Probable small CVA as underlying cause -Aspirin daily -MRA and MRI in a.m. DIABETIC ULCER LEFT FOOT -Consult Dr. Tuttle MAINTENANCE ISSUES -DVT prophylaxis; Lovenox 30 mg subcu daily -GI prophylaxis; not indicated -Colon catheter; not indicated -Nutrition; consistent carb diet -Nicotine dependence; not required CODE STATUS-FULL CODE ADMISSION STATUS-this patient will be admitted to observation status, expect no more than a one night hospital stay for evaluation and management of problems as outlined above. DISPOSITION-anticipate discharge to home after the hospital stay. PRIMARY CARE PROVIDER-Dr. Jara - Mortality Measure Prognosis:: Good
[2019-05-16] MEDS ORDERED: Ondansetron 4 MG/2 ML SDV IV PRN (20:37)
[2019-05-16] MEDS ORDERED: Acetaminophen 325 MG Tab PO PRN (20:37)
[2019-05-16] MEDS ORDERED: Glucose Gel 15 GM in 37.5 GM Tube PO PRN (20:37)
[2019-05-16] MEDS ORDERED: 50% Dextrose in Water 50 ML Syringe IV PRN (20:37)
[2019-05-16] MEDS ORDERED: Polyethylene Glycol 3350 Powder 17 GM Packet PO PRN (20:37)
[2019-05-16] MEDS ORDERED: Morphine 30 MG Tab.ER PO SCH (21:00)
[2019-05-16] MEDS: Insulin Lispro 100 Unit/ML 3 ML KwikPen SUBCUT SCH (21:33)
[2019-05-16] MEDS: Nicotine 14 MG/24 Hr Patch TRDERM SCH (21:34)
[2019-05-16] MEDS ORDERED: Enoxaparin 40 MG/0.4 ML Syringe SUBCUT SCH (21:45)
[2019-05-16] MEDS: Morphine 15 MG Tab.ER PO PRN (22:04)
[2019-05-16] MEDS: Insulin Glargine,Human Rec. Analog 100 Units/ML 3 ML Pen SUBCUT SCH (22:05)
[2019-05-16] MEDS: Melatonin 3 MG Tab PO PRN (22:05)
[2019-05-16] MEDS: Sodium Chloride 0.9% 1,000 ML IV SCH (22:09)
[2019-05-17] MEDS: Sodium Chloride 0.9% 1,000 ML IV SCH ×2 (03:39→14:41)
[2019-05-17] MEDS: Insulin Lispro 100 Unit/ML 3 ML KwikPen SUBCUT SCH ×4 (08:00→21:31)
[2019-05-17] MEDS: Nicotine 14 MG/24 Hr Patch TRDERM SCH ×2 (08:17→14:53)
[2019-05-17] MEDS: metFORMIN 500 MG Tab PO SCH ×2 (08:24→17:15)
[2019-05-17] MEDS: Aspirin 81 MG Tab.EC PO SCH (08:24)
[2019-05-17] MEDS ORDERED: LORazepam 0.5 MG Tab PO ONE (09:30)
--- NOTE | 2019-05-17 09:36 | CR ---
CHEST: Portable 05/16/2019 at 05 43 CLINICAL HISTORY:SOB COMPARISON:2017 FINDINGS: Heart size and pulmonary vascularity are normal. There are atherosclerotic changes in the aorta.. There is some generalized interstitial prominence. This is felt to be chronic. This is similar to the prior study. No significant airspace disease seen. Impression: Mild interstitial prominence is felt to be chronic No acute cardiopulmonary process.
[2019-05-17] MEDS: Insulin Glargine,Human Rec. Analog 100 Units/ML 3 ML Pen SUBCUT SCH (09:43)
[2019-05-17] MEDS: Morphine 15 MG Tab.ER PO PRN ×3 (09:48→21:33)
--- NOTE | 2019-05-17 11:34 | MR ---
Brain wo Cont CLINICAL HISTORY: Aphasia COMPARISON: Head CT 05/16/2019 TECHNIQUE: Multiple axial, sagittal, and coronal images were obtained on a 1.5 T magnet with multiweighted sequences, FLAIR, and diffusion imaging without contrast. FINDINGS: There is no focal mass lesion. There is no hemmorhage or extraaxial collection. There is no restricted diffusion. There are a few scattered T2 hyperintensities in the periventricular and subcortical white matter. The basal cisterns and sulci over the convexities are mildly prominent. The ventricles are normal for age. IMPRESSION: Mild age-related atrophy. Chronic ischemic microvascular changes Brain wo Cont TECHNIQUE: Multiple 3D images of the intracranial arteries were displayed on a workstation. All images were obtained on a 1.5 Yolanda Siemens unit. FINDINGS: There is some irregularity of the upper extracranial carotid arteries. Some of this may be artifact. The intracranial carotid arteries show some mild irregularity. The anterior communicating arteries are patent and have a normal course and contour. Anterior communicating artery is not definitively identified. Middle cerebral arteries have normal course and contour. Posterior cerebral arteries have a normal course and caliber. The right posterior communicating artery is patent. The left posterior indicating artery is diminutive. Basilar artery has some mild tortuosity. Both vertebral arteries are patent. The right is dominant. IMPRESSION: Mild contour irregularities in both carotid arteries. Some of this is felt to be artifact. Some plaque is not excluded. There is no significant stenosis
--- NOTE | 2019-05-17 14:06 | PN ---
DATE OF SERVICE: 05/17/2019 This is in response to a consult from Dr. Sami Raines regarding ulcer on the lateral side of the left foot. Thank you very much, Dr. Raines, for the referral of this patient to our service. SUBJECTIVE: The patient is a 68-year-old male, seen at bedside. The patient relates that he has a lot of pain on the outside of his left foot. Denies having any other problems with it at this time. Relates he thinks he might have a callus on his right foot. OBJECTIVE: GENERAL: The patient was alert and oriented x3, and in no acute distress. VITAL SIGNS: Per chart. DERMATOLOGIC: Revealed ulceration on the lateral aspect of the left foot. After debridement of hyperkeratotic and necrotic tissue down to the subcutaneous layer sharply with a 15 blade, it was an incisional debridement. The ulceration measured 10 mm x 20 mm. It had joan-marginal erythema, but there was no purulence and no malodor. It was very tender to palpation. Hyperkeratotic lesion was noted on the plantar aspect of the right 5th metatarsal head, but this was thin and nonfluctuant. There was no purulence, malodor, signs of infection, or joan-marginal erythema. ASSESSMENT: 1. Diabetes mellitus. 2. Diabetic polyneuropathy. 3. Peripheral vascular disease. 4. Callus, right foot. 5. Diabetic foot ulcer, left foot, with signs of superficial infection. PLAN: The patient was examined and evaluated. Incisional debridement was done on the left foot lateral side with a 15 blade, sharply down to the subcutaneous layer and it was dressed with dry sterile dressing consisting of 4x4 and Coban. The patient was told to continue to do dressing changes every other day. Return to clinic with Podiatry in one week. We discussed the patient with Dr. Raines and told him we think antibiotics would be a good idea for now. Dr. Raines was agreeable to this, and we talked about either prescribing Augmentin or clindamycin. Dr. Raines was agreeable to this. The patient was also agreeable to this. The patient to return to clinic with Podiatry in one week. Prabhu Tuttle DPM /[id number]
--- NOTE | 2019-05-17 14:53 | PCM.PN ---
- General Info Date of Service: 05/17/19 Subjective Update: Mr. Fry has been stable since admission, new neurologic symptoms. MRI of the brain as well as MRA of the head have been obtained showing no acute or subacute CVA, no significant blockage in the arteries noted. Blood sugars have come under much better control now that he has been started back on insulin and metformin. Functional Status: Reports: Tolerating Diet, Urinating - Review of Systems General: Reports: Weakness, Fatigue. Denies: Fever, Chills Pulmonary: Reports: No Symptoms Cardiovascular: Reports: No Symptoms Gastrointestinal: Reports: No Symptoms - Patient Data Vitals - Most Recent: Last Vital Signs Temp 97.2 F 05/17/19 11:45 Pulse 71 05/17/19 11:45 Resp 18 05/17/19 11:45 BP 117/69 05/17/19 11:45 Pulse Ox 98 05/17/19 11:45 Weight - Most Recent: 175 lb I&O - Last 24 Hours: Intake & Output 05/16/19 05/17/19 05/17/19 22:59 06:59 14:59 Intake Total 1660 Output Total 200 Balance 1660 -200 Lab Results Last 24 Hours: Laboratory Results - last 24 hr 05/16/19 05/16/19 05/17/19 Range/Units 16:04 20:26 04:00 WBC 11.5 H (4.5-11.0) K/uL RBC 3.76 L (4.30-5.90) M/uL Hgb 11.1 L (12.0-15.0) g/dL Hct 33.1 L (40.0-54.0) % MCV 88 (80-98) fL MCH 30 (27-31) pg MCHC 34 (32-36) % Plt Count 236 (150-400) K/uL Neut % (Auto) 51 (36-66) % Lymph % (Auto) 40 (24-44) % [place] % (Auto) 6 (2-6) % Eos % (Auto) 3 (2-4) % Baso % (Auto) 0 (0-1) % VBG pH 7.407 (7.350-7.450) Sodium (140-148) mmol/L Potassium (3.6-5.2) mmol/L Chloride (100-108) mmol/L Carbon Dioxide (21-32) mmol/L Anion Gap (5.0-14.0) mmol/L BUN (7-18) mg/dL Creatinine (0.8-1.3) mg/dL Est Cr Clr Drug Dosing mL/min Estimated GFR (MDRD) (>60) Glucose (74-106) mg/dL Calcium (8.5-10.1) mg/dL Urine Color Yellow (YELLOW) Urine Appearance Clear (CLEAR) Urine pH 5.5 (5.0-8.0) Ur Specific [place] 1.015 (1.008-1.030) Urine Protein Negative (NEGATIVE) mg/dL Urine Glucose (UA) 500 H (NEGATIVE) mg/dL Urine Ketones Trace H (NEGATIVE) mg/dL Urine Occult Blood Negative (NEGATIVE) Urine Nitrite Negative (NEGATIVE) Urine Bilirubin Negative (NEGATIVE) Urine Urobilinogen 0.2 (0.2-1.0) EU/dL Ur Leukocyte Esterase Negative (NEGATIVE) Urine RBC Not seen (0-5) Urine WBC Not seen (0-5) Ur Epithelial Cells Not seen Amorphous Sediment Not seen Urine Bacteria Not seen Urine Mucus Not seen 05/17/19 Range/Units 04:00 WBC (4.5-11.0) K/uL RBC (4.30-5.90) M/uL Hgb (12.0-15.0) g/dL Hct (40.0-54.0) % MCV (80-98) fL MCH (27-31) pg MCHC (32-36) % Plt Count (150-400) K/uL Neut % (Auto) (36-66) % Lymph % (Auto) (24-44) % [place] % (Auto) (2-6) % Eos % (Auto) (2-4) % Baso % (Auto) (0-1) % VBG pH (7.350-7.450) Sodium 140 (140-148) mmol/L Potassium 4.0 (3.6-5.2) mmol/L Chloride 104 (100-108) mmol/L Carbon Dioxide 27 (21-32) mmol/L Anion Gap 9.4 (5.0-14.0) mmol/L BUN 19 H D (7-18) mg/dL Creatinine 1.0 (0.8-1.3) mg/dL Est Cr Clr Drug Dosing 77.60 mL/min Estimated GFR (MDRD) > 60 (>60) Glucose 221 H (74-106) mg/dL Calcium 7.6 L (8.5-10.1) mg/dL Urine Color (YELLOW) Urine Appearance (CLEAR) Urine pH (5.0-8.0) Ur Specific [place] (1.008-1.030) Urine Protein (NEGATIVE) mg/dL Urine Glucose (UA) (NEGATIVE) mg/dL Urine Ketones (NEGATIVE) mg/dL Urine Occult Blood (NEGATIVE) Urine Nitrite (NEGATIVE) Urine Bilirubin (NEGATIVE) Urine Urobilinogen (0.2-1.0) EU/dL Ur Leukocyte Esterase (NEGATIVE) Urine RBC (0-5) Urine WBC (0-5) Ur Epithelial Cells Amorphous Sediment Urine Bacteria Urine Mucus Med Orders - Current: Current Medications Acetaminophen (Tylenol) 650 mg PO Q4H PRN PRN Reason: Pain (Mild 1-3)/fever Last Admin: 05/16/19 22:07 Dose: 650 mg Aspirin (Halfprin) 81 mg PO DAILY [facility] Last Admin: 05/17/19 08:24 Dose: 81 mg Dextrose (Glutose 15) 15 gm PO ONETIME PRN PRN Reason: Hypoglycemia Dextrose/Water (Dextrose 50% In Water) 50 ml IV ONETIME PRN PRN Reason: Hypoglycemia Enoxaparin Sodium (Lovenox) 40 mg SUBCUT BEDTIME [facility] Insulin Glargine (Lantus Solostar) 28 units SUBCUT DAILY [facility] Last Admin: 05/17/19 09:43 Dose: 28 units Insulin Human Lispro (Humalog) 0 unit SUBCUT QIDACANDBED [facility]; Protocol Last Admin: 05/17/19 11:51 Dose: 1 unit Melatonin (Melatonin) 6 mg PO BEDTIME PRN PRN Reason: Sleep Last Admin: 05/16/19 22:05 Dose: 6 mg Metformin HCl (Glucophage) 1,000 mg PO BIDMEALS [facility] Last Admin: 05/17/19 08:24 Dose: 1,000 mg Morphine Sulfate (Ms Contin) 15 mg PO TID PRN PRN Reason: Pain Last Admin: 05/17/19 09:48 Dose: 15 mg Nicotine (Habitrol) 14 mg TRDERM DAILY [facility] Last Admin: 05/17/19 08:17 Dose: 14 mg Ondansetron HCl (Zofran) 4 mg IV Q4H PRN PRN Reason: Nausea/Vomiting Polyethylene Glycol (Miralax) 17 gm PO DAILY PRN PRN Reason: Constipation Sodium Chloride (Saline Flush) 10 ml FLUSH ASDIRECTED PRN PRN Reason: Keep Vein Open Discontinued Medications Enoxaparin Sodium (Lovenox) 40 mg SUBCUT DAILY [facility] Last Admin: 05/16/19 22:08 Dose: 40 mg Sodium Chloride (Normal Saline) 1,000 mls @ 999 mls/hr IV ASDIRECTED [facility] Last Admin: 05/16/19 16:20 Dose: 999 mls/hr Sodium Chloride (Normal Saline) 1,000 mls @ 999 mls/hr IV ASDIRECTED [facility] Sodium Chloride (Normal Saline) 1,000 mls @ 125 mls/hr IV ASDIRECTED [facility] Last Admin: 05/17/19 14:41 Dose: 125 mls/hr Influenza Virus Vaccine (Pharmacy To Dose - Influenza Vaccine) 1 each IM ONETIME ONE Stop: 05/17/19 10:01 Influenza Virus Vaccine (Fluzone High-Dose Syringe) 180 mcg IM .ONCE ONE Stop: 05/17/19 10:01 Last Admin: 05/17/19 11:56 Dose: 180 mcg Insulin Human Regular (Humulin R) 3 unit IVPUSH ONETIME ONE Stop: 05/16/19 16:58 Last Admin: 05/16/19 18:13 Dose: 3 units Insulin Human Regular (Humulin R) 7 unit SUBCUT ONETIME ONE Stop: 05/16/19 16:58 Last Admin: 05/16/19 18:15 Dose: 7 units Lorazepam (Ativan) 0.5 mg PO ONETIME ONE Stop: 05/17/19 09:31 Last Admin: 05/17/19 09:44 Dose: 0.5 mg Morphine Sulfate (Ms Contin) 15 mg PO TID [facility] Last Admin: 05/16/19 23:14 Dose: Not Given Sodium Chloride (Saline Flush) 10 ml FLUSH ASDIRECTED PRN PRN Reason: Keep Vein Open Last Admin: 05/16/19 16:08 Dose: 10 ml - Exam General: Alert, Oriented, Cooperative, No Acute Distress Lungs: Clear to Auscultation, Normal Respiratory Effort Cardiovascular: Regular Rate, Regular Rhythm, No Murmurs GI/Abdominal Exam: Soft, Non-Tender, No Organomegaly, No Distention Extremities: Other (Ulcer left lateral foot) Sepsis Event Note - Evaluation Sepsis Screening Result: No Definite Risk - Focused Exam Vital Signs: Vital Signs Temp Pulse Resp BP Pulse Ox 05/17/19 11:45 97.2 F 71 18 117/69 98 05/17/19 06:44 96.4 F L 66 18 133/57 L 95 05/17/19 04:00 97.1 F 71 18 117/65 96 Date Exam was Performed: 05/17/19 Time Exam was Performed: 14:49 - Problem List Review Problem List Initiated/Reviewed/Updated: Yes - My Orders Last 24 Hours: My Active Orders 05/16/19 19:38 Resuscitation Status Routine 05/16/19 20:37 Patient Status [ADT] Routine Ambulate [RC] QID Blood Glucose Check, Bedside [RC] QIDACANDBED Diabetes Education [RC] Click to Edit Height and Weight [RC] 0500 Intake and Output [RC] QSHIFT Neuro Check [RC] Q4H Notify Provider Consults [RC] ASDIRECTED Notify Provider Vital Signs [RC] ASDIRECTED Notify Provider [RC] PRN Oxygen Therapy [RC] PRN Peripheral IV Care [RC] Q12H Up With Assistance [RC] ASDIRECTED Up to Chair [RC] QID VTE/DVT Education [RC] Per Unit Routine Vital Signs [RC] Q4H Consult to Physician [CONS] Routine Acetaminophen [Tylenol] 650 mg PO Q4H PRN Dextrose 50% in Water 50 ml IV ONETIME PRN Dextrose [Glutose 15] 15 gm PO ONETIME PRN Insulin Glarg,Human.Rec.Analog [LantUS Solostar] 28 units SUBCUT DAILY Insulin Lispro [HumaLOG] See Protocol SUBCUT QIDACANDBED Ondansetron [Zofran] 4 mg IV Q4H PRN Sodium Chloride 0.9% [Saline Flush] 10 ml FLUSH ASDIRECTED PRN polyethylene glycoL 3350 [MiraLAX] 17 gm PO DAILY PRN Peripheral IV Insertion Adult [OM.PC] Routine 05/16/19 21:12 Melatonin 6 mg PO BEDTIME PRN 05/16/19 21:14 Consult to Case Management/Fusing Machine Tender [CONS] Routine 05/16/19 21:15 Nicotine [Habitrol] 14 mg TRDERM DAILY 05/16/19 21:37 Morphine [MS Contin] 15 mg PO TID PRN 05/16/19 23:24 Influenza Vaccine Charge [RC] .DISCHARGE 05/16/19 Dinner Consistent Carbohydrate Diet [DIET] 05/17/19 08:00 metFORMIN [Glucophage] 1,000 mg PO BIDMEALS 05/17/19 09:00 Ang Head wo Cont [MR] Urgent Aspirin [Halfprin] 81 mg PO DAILY 05/17/19 14:48 Convert IV to Saline Lock [OM.PC] Routine 05/17/19 16:30 GLUCOSE POC LAB TO COLLECT [POC] QIDACANDBED 05/17/19 21:00 GLUCOSE POC LAB TO COLLECT [POC] QIDACANDBED Enoxaparin [Lovenox] 40 mg SUBCUT BEDTIME 05/18/19 07:30 GLUCOSE POC LAB TO COLLECT [POC] QIDACANDBED 05/18/19 11:30 GLUCOSE POC LAB TO COLLECT [POC] QIDACANDBED 05/18/19 16:30 GLUCOSE POC LAB TO COLLECT [POC] QIDACANDBED 05/18/19 21:00 GLUCOSE POC LAB TO COLLECT [POC] QIDACANDBED 05/19/19 07:30 GLUCOSE POC LAB TO COLLECT [POC] QIDACANDBED 05/19/19 11:30 GLUCOSE POC LAB TO COLLECT [POC] QIDACANDBED 05/19/19 16:30 GLUCOSE POC LAB TO COLLECT [POC] QIDACANDBED 05/19/19 21:00 GLUCOSE POC LAB TO COLLECT [POC] QIDACANDBED 05/20/19 07:30 GLUCOSE POC LAB TO COLLECT [POC] QIDACANDBED 05/20/19 11:30 GLUCOSE POC LAB TO COLLECT [POC] QIDACANDBED 05/20/19 16:30 GLUCOSE POC LAB TO COLLECT [POC] QIDACANDBED 05/20/19 21:00 GLUCOSE POC LAB TO COLLECT [POC] QIDACANDBED 05/21/19 07:30 GLUCOSE POC LAB TO COLLECT [POC] QIDACANDBED 05/21/19 11:30 GLUCOSE POC LAB TO COLLECT [POC] QIDACANDBED 05/21/19 16:30 GLUCOSE POC LAB TO COLLECT [POC] QIDACANDBED - Plan Plan:: ASSESSMENT AND PLAN HYPERGLYCEMIA SECONDARY TO UNCONTROLLED TYPE 2 DIABETES MELLITUS-most level significantly improved now that he is been started back on long-acting insulin and metformin -4 times daily glucometers -brass molder consult -Lantus insulin 28 units subcu daily -Metformin 1000 mg p.o. twice daily -Low-dose sliding scale Humalog EXPRESSIVE APHASIA-no significant abnormality identified on her MRI and MRA -Aspirin daily -MRA and MRI in a.m. DIABETIC ULCER LEFT FOOT -Start antibiotic therapy Augmentin 875 twice daily -Outpatient follow-up with Dr. Tuttle in 1 week MAINTENANCE ISSUES -DVT prophylaxis; Lovenox 30 mg subcu daily -GI prophylaxis; not indicated -Colon catheter; not indicated -Nutrition; consistent carb diet -Nicotine dependence; not required CODE STATUS-FULL CODE ADMISSION STATUS-this patient will be admitted to observation status, expect no more than a one night hospital stay for evaluation and management of problems as outlined above. DISPOSITION-anticipate discharge to home after the hospital stay. PRIMARY CARE PROVIDER-Dr. Jara
[2019-05-17] MEDS: Lactobacillus Rhamnosus GG (Probiotic) Cap PO SCH ×2 (15:54→21:32)
[2019-05-17] MEDS: Amoxicillin/Clavulanate K 875-125 MG Tab PO SCH (17:15)
[2019-05-17] MEDS ORDERED: Enoxaparin 40 MG/0.4 ML Syringe SUBCUT SCH (21:00)
[2019-05-17] MEDS: Melatonin 3 MG Tab PO PRN (21:32)
[2019-05-18] MEDS: Morphine 15 MG Tab.ER PO PRN (06:19)
[2019-05-18] MEDS: metFORMIN 500 MG Tab PO SCH (07:33)
[2019-05-18] MEDS: Amoxicillin/Clavulanate K 875-125 MG Tab PO SCH (07:34)
[2019-05-18] MEDS: Insulin Lispro 100 Unit/ML 3 ML KwikPen SUBCUT SCH ×2 (07:39→11:48)
[2019-05-18] MEDS: Insulin Glargine,Human Rec. Analog 100 Units/ML 3 ML Pen SUBCUT SCH (09:09)
[2019-05-18] MEDS: Lactobacillus Rhamnosus GG (Probiotic) Cap PO SCH (09:09)
[2019-05-18] MEDS: Aspirin 81 MG Tab.EC PO SCH (09:09)
[2019-05-18] MEDS: Nicotine 14 MG/24 Hr Patch TRDERM SCH (09:10)
[2019-05-18 10:25] VITALS: BP 120/55; PULSE 81
--- NOTE | 2019-05-18 12:30 | PCM.DCSUM1 ---
Discharge Summary - Hospital Course Brief History: Mr. posey is a 68-year-old gentleman who was admitted to observation status through the emergency department for management and evaluation of, recent aphasia, left foot ulcer and uncontrolled type 2 diabetes mellitus with marked hyperglycemia. - Discharge Data Discharge Date: 05/18/19 Discharge Disposition: Home, Self-Care 01 Condition: Fair - Referral to Home Health Primary Care Physician: PCP None - Discharge Diagnosis/Problem(s) (1) Hyperglycemia SNOMED Code(s): 39365128 ICD Code: R73.9 - HYPERGLYCEMIA, UNSPECIFIED Status: Acute Current Visit : Yes (2) Dehydration SNOMED Code(s): 18050553 ICD Code: E86.0 - DEHYDRATION Status: Acute Current Visit: Yes (3) Diabetic foot ulcer SNOMED Code(s): 956280055 ICD Code: E11.621 - TYPE 2 DIABETES MELLITUS WITH FOOT ULCER; L97.509 - NON- PRESSURE CHRONIC ULCER OTH PRT UNSP FOOT W UNSP SEVERITY Status: Chronic Current Visit: No Qualifiers: Diabetic foot ulcer location: unspecified part of foot Diabetes mellitus type: type 2 Laterality: unspecified laterality Non-pressure ulcer stage: unspecified non-pressure ulcer stage Qualified Code(s): E11.621 - Type 2 diabetes mellitus with foot ulcer; L97.509 - Non-pressure chronic ulcer of other part of unspecified foot with unspecified severity (4) Chronic pain SNOMED Code(s): 13329726 ICD Code: G89.29 - OTHER CHRONIC PAIN Status: Chronic Current Visit: No - Patient Summary/Data Consults: Consultations 05/16/19 20:37 Consult to Physician [CONS] Routine Consulting Provider: Prabhu Tuttle Call Completed to Consulting Physician: No Reason for Consult: Diabetic foot ulcer left lateral foot 05/16/19 21:14 Consult to Case Management/Car Hop [CONS] Routine Comment: Physician Instructions: Service(s) to be Consulted: Case Manage&Social Servic Special Instructions: has financial concerns Hospital Course: Mr. Fry is a 68-year-old gentleman who was admitted to observation status to the emergency department for further evaluation of expressive a aphasia of 2 weeks duration and uncontrolled type 2 diabetes mellitus with hyperglycemia. Mr. Fry longstanding history of type 2 diabetes mellitus. He reports that he is not taken his insulin for at least the past 2 months as he has been unable to afford it. 2 weeks ago he noted significant difficulty with his speech, very garbled and unable to get words out that he wanted to say. It has slowly improved since then but is not yet back to normal. He denies any other focal neurologic symptoms at the present time. He was seen and evaluated the clinic today and his blood sugar was noted to be 550. He was referred to the emergency department for further evaluation. CT scan of the head shows no evidence of acute bleed or other acute abnormalities. He also has an ulcer on the lateral aspect of his left foot. Admission he was restarted on his long- acting insulin, in addition to sliding scale short acting insulin. Metformin was restarted at 1000 mg twice daily. With these interventions he had significant improvement in glucose levels by the time of discharge. He was seen by the conservation educator and nurse rig manager during hospitalization and follow-up appointment with them will be scheduled. He was seen and evaluated by Dr. Tuttle of his left foot ulcer. Dr. Tuttle commended initiation of antibiotic therapy with Augmentin and follow-up appointment with him in the clinic early next week. MRI and MRA of the brain and head were obtained and showed no evidence of subacute or acute CVA and no significant blockage in the carotid arteries. He will be discharged home with prescriptions for Augmentin, probiotic therapy, insulin and metformin. Follow-up appointment will be scheduled with his primary care provider within 1 week. Activity will be as tolerated and he will remain on a consistent carbohydrate diet. - Patient Instructions Diet: Diabetic Diet Activity: As Tolerated Other/Special Instructions: Please arrange for home health care after discharge. Daily dressing changes to left foot. - Discharge Plan *PRESCRIPTION DRUG MONITORING PROGRAM REVIEWED*: Not Applicable *COPY OF PRESCRIPTION DRUG MONITORING REPORT IN PATIENT ANA: Not Applicable Prescriptions/Med Rec: Amoxicillin/Clavulanate K [Augmentin 875-125 MG] 1 tab PO BIDMEALS #18 tablet Insulin Glargine,Hum.Rec.Anlog [Lantus Solostar] 28 units SQ DAILY #2 pen Lactobacillus Rhamnosus GG [Culturelle] 1 cap PO BID #60 cap metFORMIN [Glucophage] 1,000 mg PO BIDMEALS #60 tab Home Medications: Home Meds Morphine [MS Contin] 15 mg PO TID PRN 06/02/16 [History] Aspirin [Lo-Dose Aspirin EC] 81 mg PO DAILY 05/16/19 [History] Amoxicillin/Clavulanate K [Augmentin 875-125 MG] 1 tab PO BIDMEALS #18 tablet [Rx] Insulin Glargine,Hum.Rec.Anlog [Lantus Solostar] 28 units SQ DAILY #2 pen [Rx] Lactobacillus Rhamnosus GG [Culturelle] 1 cap PO BID #60 cap 05/18/19 [Rx] metFORMIN [Glucophage] 1,000 mg PO BIDMEALS #60 tab 05/18/19 [Rx] Referrals: Prabhu Tuttle DPM [Physician] - 05/24/19 11:45 am Alfredo Jara MD [Physician] - 05/24/19 2:00 pm Teri Reina [Registered Dietitian] - 06/16/19 2:00 pm - Discharge Summary/Plan Comment DC Time >30 min.: No - Patient Data Vitals - Most Recent: Last Vital Signs Temp 97.4 F 05/18/19 10:24 Pulse 81 05/18/19 10:24 Resp 18 05/18/19 10:24 BP 120/55 L 05/18/19 10:24 Pulse Ox 95 05/18/19 10:24 Weight - Most Recent: 175 lb I&O - Last 24 hours: Intake & Output 05/17/19 05/18/19 05/18/19 22:59 06:59 14:59 Intake Total 2508 600 Output Total 800 400 1 Balance 1708 -400 599 Med Orders - Current: Current Medications Acetaminophen (Tylenol) 650 mg PO Q4H PRN PRN Reason: Pain (Mild 1-3)/fever Last Admin: 05/16/19 22:07 Dose: 650 mg Amoxicillin/Clavulanate Potassium (Augmentin 875 Mg/125 Mg) 1 tab PO BIDMEALS [facility] Last Admin: 05/18/19 07:34 Dose: 1 tab Aspirin (Halfprin) 81 mg PO DAILY [facility] Last Admin: 05/18/19 09:09 Dose: 81 mg Dextrose (Glutose 15) 15 gm PO ONETIME PRN PRN Reason: Hypoglycemia Dextrose/Water (Dextrose 50% In Water) 50 ml IV ONETIME PRN PRN Reason: Hypoglycemia Enoxaparin Sodium (Lovenox) 40 mg SUBCUT BEDTIME [facility] Last Admin: 05/17/19 21:31 Dose: 40 mg Insulin Glargine (Lantus Solostar) 28 units SUBCUT DAILY [facility] Last Admin: 05/18/19 09:09 Dose: 28 units Insulin Human Lispro (Humalog) 0 unit SUBCUT QIDACANDBED [facility]; Protocol Last Admin: 05/18/19 11:48 Dose: 1 unit Lactobacillus Rhamnosus (Culturelle) 1 cap PO BID [facility] Last Admin: 05/18/19 09:09 Dose: 1 cap Melatonin (Melatonin) 6 mg PO BEDTIME PRN PRN Reason: Sleep Last Admin: 05/17/19 21:32 Dose: 6 mg Metformin HCl (Glucophage) 1,000 mg PO BIDDEALS [facility] Last Admin: 05/18/19 07:33 Dose: 1,000 mg Morphine Sulfate (Ms Contin) 15 mg PO TID PRN PRN Reason: Pain Last Admin: 05/18/19 06:19 Dose: 15 mg Nicotine (Habitrol) 14 mg TRDERM DAILY [facility] Last Admin: 05/18/19 09:10 Dose: 14 mg Ondansetron HCl (Zofran) 4 mg IV Q4H PRN PRN Reason: Nausea/Vomiting Polyethylene Glycol (Miralax) 17 gm PO DAILY PRN PRN Reason: Constipation Sodium Chloride (Saline Flush) 10 ml FLUSH ASDIRECTED PRN PRN Reason: Keep Vein Open Discontinued Medications Enoxaparin Sodium (Lovenox) 40 mg SUBCUT DAILY [facility] Last Admin: 05/16/19 22:08 Dose: 40 mg Sodium Chloride (Normal Saline) 1,000 mls @ 999 mls/hr IV ASDIRECTED [facility] Last Admin: 05/16/19 16:20 Dose: 999 mls/hr Sodium Chloride (Normal Saline) 1,000 mls @ 999 mls/hr IV ASDIRECTED [facility] Sodium Chloride (Normal Saline) 1,000 mls @ 125 mls/hr IV ASDIRECTED [facility] Last Admin: 05/17/19 14:41 Dose: 125 mls/hr Influenza Virus Vaccine (Pharmacy To Dose - Influenza Vaccine) 1 each IM ONETIME ONE Stop: 05/17/19 10:01 Influenza Virus Vaccine (Fluzone High-Dose Syringe) 180 mcg IM .ONCE ONE Stop: 05/17/19 10:01 Last Admin: 05/17/19 11:56 Dose: 180 mcg Insulin Human Regular (Humulin R) 3 unit IVPUSH ONETIME ONE Stop: 05/16/19 16:58 Last Admin: 05/16/19 18:13 Dose: 3 units Insulin Human Regular (Humulin R) 7 unit SUBCUT ONETIME ONE Stop: 05/16/19 16:58 Last Admin: 05/16/19 18:15 Dose: 7 units Lorazepam (Ativan) 0.5 mg PO ONETIME ONE Stop: 05/17/19 09:31 Last Admin: 05/17/19 09:44 Dose: 0.5 mg Morphine Sulfate (Ms Contin) 15 mg PO TID [facility] Last Admin: 05/16/19 23:14 Dose: Not Given Sodium Chloride (Saline Flush) 10 ml FLUSH ASDIRECTED PRN PRN Reason: Keep Vein Open Last Admin: 05/16/19 16:08 Dose: 10 ml - Exam General: Reports: Alert, Oriented, Cooperative, Mild Distress Lungs: Reports: Clear to Auscultation, Normal Respiratory Effort Cardiovascular: Reports: Regular Rate, Regular Rhythm, No Murmurs GI/Abdominal Exam: Soft, Non-Tender, No Organomegaly, No Distention Extremities: Other (Ulcer left lateral foot)
== END 2019-05-18 13:50 | disposition home or self-care (01) ==
LOC: JP.ED 15:54 → JP.MS 19:35
PROVIDERS: ADMIT Hospitalist; ATTEND Hospitalist
DX: E11.65 Type 2 diabetes mellitus with hyperglycemia (principal); R47.01 Aphasia; E11.621 Type 2 diabetes mellitus with foot ulcer; L97.529 Non-pressure chronic ulcer of other part of left foot with unspecified severity; E86.0 Dehydration; G89.29 Other chronic pain; F32.9 Major depressive disorder, single episode, unspecified; I10 Essential (primary) hypertension; F17.200 Nicotine dependence, unspecified, uncomplicated; Z23 Encounter for immunization; Z79.4 Long term (current) use of insulin; Z79.82 Long term (current) use of aspirin; Z79.899 Other long term (current) drug therapy
CPT/HCPCS: 36415; 70450; 70544; 70551; 71045; 80048; 81001; 82800; 82962; 85025; 90662; 93005; 93010; 96360; 96361; 96372; 96376; 99285; A9270; G0008; G0378; J1650; J1815; J7030

== ENCOUNTER 2019-11-21 12:25 | Day surgery (SDC) | payer MEDICARE ==
[~2019-11-21 12:25] MED LIST: Bupivacaine 0.5% 50 ML MDV ONE; Lidocaine 2% 20 ML MDV ONE; Midazolam 1 MG/ML 2 ML SDV ONE; Propofol 200 MG/20 ML SDV ONE; fentaNYL 100 MCG/2 ML SDV ONE
[2019-11-21] MEDS ORDERED: Lactated Ringers 1,000 ML IV SCH (13:15)
[2019-11-21] MEDS ORDERED: ceFAZolin 2 GM in Premix Bag 1 BAG IV ONE (14:00)
[2019-11-21] MEDS ORDERED: Acetaminophen/HYDROcodone 325-5 MG Tab PO ONE (15:15)
[2019-11-21 15:59] VITALS: BP 119/72; PULSE 85
--- NOTE | 2019-11-22 09:39 | OR ---
DATE OF PROCEDURE: 11/21/2019 SURGEON: Prabhu Tuttle DPM PREOPERATIVE DIAGNOSIS: Osteomyelitis, left 5th metatarsal head. POSTOPERATIVE DIAGNOSIS: Osteomyelitis, left 5th metatarsal head. PROCEDURE: Partial 5th ray resection, left foot. ANESTHESIA: Local with IV sedation. HEMOSTASIS: Obtained with an ankle tourniquet on the left ankle at 250 mmHg. ESTIMATED BLOOD LOSS: 5 mL. MATERIALS: None. INJECTABLES: A total of 10 mL of Marcaine 0.5% plain were injected around the surgical site. PATHOLOGY: The distal 2/3 of the left 5th ray was sent for pathology. CONDITION: Stable. INDICATIONS FOR SURGERY: Osteomyelitis, left 5th metatarsal head. PROCEDURE IN DETAIL: The patient was brought to the operating room, placed on the operating table in supine position. Following IV sedation, anesthesia was obtained with a total of 10 mL of Marcaine 0.5% plain in the left foot. The left foot was then scrubbed, prepped, and draped in the usual aseptic manner, raised to 60 degrees for hemostasis and the tourniquet was inflated. Esmarch was not used. Foot was lowered to table. Skin incision was made around the base of the left 5th metatarsal straight down to bone, and then around both of the ulcerations that were present so that they could be completely excised. The left 5th toe was disarticulated at the left 5th metatarsal head and then was removed and sent for pathological examination. The distal half of the left 5th metatarsal was then resected using a sagittal saw, and the distal half of the left 5th metatarsal was sent for pathological examination. The incision was flushed out with copious amounts of sterile saline. Skin was then closed with 0 and 3-0 Prolene in simple interrupted configuration, after it was flushed with copious amounts of sterile saline, and then dressed with Xeroform, 4x4s, Kerlix, and Coban. The patient was returned to recovery room with vital signs stable and vascular status intact to both feet. The patient was given instructions to rest, ice, and elevate the left foot. Maintain strict nonweightbearing on the left foot and return to clinic for followup in 1 week, at which time, he will be re-evaluated since we were concerned about a dusky area on the posterior aspect of the left heel that was not necrotic but it was tender to palpation. We also dispensed a PRAFO boot to the patient and told him to wear at any time he is lying down in order to protect the heel. The patient related understanding. The patient was told to continue taking his antibiotics as directed until they are all gone. Prabhu Tuttle DPM /[id number]
== END 2019-11-21 16:08 | disposition home or self-care (01) ==
LOC: JP.SDS 12:25
PROVIDERS: ATTEND Podiatrist Foot & Ankle Surgery
DX: E11.69 Type 2 diabetes mellitus with other specified complication (principal); M86.8X7 Other osteomyelitis, ankle and foot; E11.43 Type 2 diabetes mellitus with diabetic autonomic (poly)neuropathy; F32.9 Major depressive disorder, single episode, unspecified; E11.621 Type 2 diabetes mellitus with foot ulcer; L97.519 Non-pressure chronic ulcer of other part of right foot with unspecified severity; L97.529 Non-pressure chronic ulcer of other part of left foot with unspecified severity; E11.51 Type 2 diabetes mellitus with diabetic peripheral angiopathy without gangrene; I10 Essential (primary) hypertension; F17.200 Nicotine dependence, unspecified, uncomplicated; J44.9 Chronic obstructive pulmonary disease, unspecified; Z79.4 Long term (current) use of insulin; Z79.899 Other long term (current) drug therapy; Z79.82 Long term (current) use of aspirin
CPT/HCPCS: 28810; 36415; 76000; 80048; 85025; 85651; 86140; A9270; J0690; J2250; J2704; J3010; J3490; J7120; J2001

== ENCOUNTER 2020-02-27 09:57 | Emergency (ER) | payer MEDICARE ==
[2020-02-27] MEDS ORDERED: Sodium Chloride 0.9% 10 ML Syringe FLUSH PRN (10:07)
[2020-02-27] MEDS ORDERED: Furosemide 40 MG/4 ML VIAL IVPUSH ONE (10:07)
[2020-02-27 10:12] VITALS: BP 132/75; PULSE 87
[2020-02-27] MEDS ORDERED: Pregabalin 75 MG Cap PO ONE (10:24)
[2020-02-27] MEDS ORDERED: Morphine 15 MG Tab.ER PO ONE (10:25)
[2020-02-27] MEDS ORDERED: Aspirin 81 MG Tab.Chew PO ONE (10:25)
[2020-02-27] MEDS ORDERED: Metoprolol Tartrate 25 MG Tab PO ONE (10:26)
--- NOTE | 2020-02-27 10:33 | EDM.PDOC ---
ED HPI GENERAL MEDICAL PROBLEM - General Chief Complaint: Respiratory Problem Stated Complaint: FLUID FROM CLINIC Time Seen by Provider: 02/27/20 10:20 Source of Information: Reports: Patient, Old Records, Provider History Limitations: Reports: No Limitations - History of Present Illness INITIAL COMMENTS - FREE TEXT/NARRATIVE: 69 yo male here on referral from the clinic for a mildly elevated Trop and mild CHF sx's. Has a long hx of Type 2 diabetes on insulin. Denies and CP. His SOB sx's were for a couple days. Some increased leg edema as well. Onset: Gradual Onset Date: 02/25/20 Duration: Day(s): (2), Constant Location: Reports: Chest Quality: Reports: Other (pain not reported) Severity: Mild Improves with: Reports: Rest Worsens with: Reports: Other (lying flat/exertion) Context: Reports: Other (See HPI) Associated Symptoms: Reports: Shortness of Breath Treatments OUTSIDE RESIDENTIAL SALES PROFESSIONAL: Reports: Other (see below) (none) Bilateral Foot Pain Score (Numeric/FACES): 9 - Related Data Allergies Allergy/AdvReac Type Severity Reaction Status Date / Time No Known Allergies Allergy Verified 11/21/19 12:53 Home Meds: Home Meds Morphine [MS Contin] 15 mg PO TID PRN 06/02/16 [History] Aspirin [Lo-Dose Aspirin EC] 81 mg PO DAILY 05/16/19 [History] Insulin NPH Hum/Reg Insulin Hm [Novolin 70-30 Flexpen] 15 unit SQ BID 11/21/19 [History] Pregabalin [Lyrica] 75 mg PO TID 11/21/19 [History] QUEtiapine [SEROquel] 100 mg PO BEDTIME 11/21/19 [History] Past Medical History HEENT History: Reports: Impaired Vision Other HEENT History: wears glasses-wolfe not have them with Cardiovascular History: Reports: Hypertension, PVD Respiratory History: Reports: COPD, SOB Gastrointestinal History: Reports: None Genitourinary History: Reports: None Musculoskeletal History: Reports: Amputation, Other (See Below) Other Musculoskeletal History: spinal stenosis, carpal tunnel , lumbar stenosis, toe amputations on both feet Neurological History: Reports: Neuropathy, Diabetic Other Neuro History: claudication Psychiatric History: Reports: Depression, Other (See Below) Other Psychiatric History: personality disorder Endocrine/Metabolic History: Reports: Diabetes, Type II Hematologic History: Reports: None Immunologic History: Reports: None, Other (See Below) Other Immunologic History: infections in L foot Oncologic (Cancer) History: Reports: None Other Dermatologic History: diabetic ulcer - Infectious Disease History Infectious Disease History: Reports: MRSA - Past Surgical History Head Surgeries/Procedures: Reports: None HEENT Surgical History: Reports: Oral Surgery Cardiovascular Surgical History: Reports: Other (See Below) Other Cardiovascular Surgeries/Procedures: stent in the leg Respiratory Surgical History: Reports: None GI Surgical History: Reports: None Endocrine Surgical History: Reports: None Neurological Surgical History: Reports: None Musculoskeletal Surgical History: Reports: Amputation, Carpal Tunnel Dermatological Surgical History: Reports: None Social & Family History - Family History Family Medical History: No Pertinent Family History - Tobacco Use Tobacco Use Status *Q: Current Every Day Tobacco User Years of Tobacco use: 45 Packs/Tins Daily: 1 - Caffeine Use Caffeine Use: Reports: Coffee - Recreational Drug Use Recreational Drug Use: No ED ROS GENERAL - Review of Systems Review Of Systems: See Below Constitutional: Reports: No Symptoms HEENT: Reports: No Symptoms Respiratory: Reports: Shortness of Breath Cardiovascular: Reports: Edema, Orthopnea GI/Abdominal: Reports: No Symptoms : Reports: No Symptoms Musculoskeletal: Reports: No Symptoms Skin: Reports: No Symptoms Neurological: Reports: No Symptoms ED EXAM, GENERAL - Physical Exam Exam: See Below Exam Limited By: No Limitations General Appearance: Alert, WD/WN, No Apparent Distress, Other (appears older than stated age. ) Eye Exam: Bilateral Eye: Normal Inspection Ears: Normal External Exam, Normal Canal, Hearing Grossly Normal, Normal TMs Ear Exam: Bilateral Ear: Auricle Normal, Canal Normal, TM normal Nose: Normal Inspection, No Blood Throat/Mouth: Normal Inspection, Normal Lips, Normal Oropharynx, Normal Voice, No Airway Compromise Head: Atraumatic, Normocephalic Neck: Normal Inspection Respiratory/Chest: No Respiratory Distress, No Accessory Muscle Use, Rales Cardiovascular: Regular Rate, Rhythm. No: No Edema GI/Abdominal: Normal Bowel Sounds, Soft, Non-Tender, No Distention Back Exam: Normal Inspection. No: CVA Tenderness (R), CVA Tenderness (L) Extremities: Normal Inspection, Normal Range of Motion, Non-Tender, Pedal Edema (trace pitting edema to both legs below the knees.). No: No Pedal Edema Neurological: Alert, Oriented, CN II-XII Intact, Normal Cognition, No Motor/Sensory Deficits Psychiatric: Normal Affect, Normal Mood Skin Exam: Warm, Dry, Intact, No Rash, Erythema (R leg with minimal increase in warmth. ) Course - Vital Signs Text/Narrative:: Jerry Mtz called @ 1052h, Last Recorded V/S: Last Vital Signs Temp 36.6 C 02/27/20 10:10 Pulse 87 02/27/20 10:38 Resp 14 02/27/20 10:10 BP 132/75 02/27/20 10:38 Pulse Ox 95 02/27/20 10:10 - Orders/Labs/Meds Orders: Active Orders 24 hr Category Date Time Status Cardiac Monitoring [RC] .As Directed Care 02/27/20 10:21 Active EKG Documentation Completion [RC] ASDIRECTED Care 02/27/20 10:06 Active Heparin Sodium Med 02/27/20 12:10 Once 4,000 units IVPUSH ONETIME ONE Heparin Sodium/D5W [Heparin 25,000 Units in D5W 500 ML] Med 02/27/20 12:15 Ordered 25,000 units in 500 ml IV TITRATE Sodium Chloride 0.9% [Saline Flush] Med 02/27/20 10:07 Active 10 ml FLUSH ASDIRECTED PRN Saline Lock Insert [OM.PC] Routine Oth 02/27/20 10:07 Ordered EKG 12 Lead [EK] Routine Ther 02/27/20 10:06 Stop Req Medication Orders Sodium Chloride (Saline Flush) 10 ml FLUSH ASDIRECTED PRN PRN Reason: Keep Vein Open Last Admin: 02/27/20 10:30 Dose: 10 ml Documented by: JOSE Labs: Laboratory Tests 02/27/20 02/27/20 Range/Units 11:12 11:27 D-Dimer, Quantitative 1311.87 H (0.0-500.0) ng/mL SARS CoV-2 RNA Rapid MELISSA Negative Meds: Medications Generic Name Dose Route Start Last Admin Trade Name Freq PRN Reason Stop Dose Admin Sodium Chloride 10 ml 02/27/20 10:07 02/27/20 10:30 Saline Flush FLUSH 10 ml ASDIRECTED PRN Administration Keep Vein Open Discontinued Medications Generic Name Dose Route Start Last Admin Trade Name Freq PRN Reason Stop Dose Admin Aspirin 324 mg 02/27/20 10:25 02/27/20 10:37 Aspirin PO 02/27/20 10:26 324 mg ONETIME ONE Administration Furosemide 40 mg 02/27/20 10:07 02/27/20 10:30 Lasix IVPUSH 02/27/20 10:08 40 mg ONETIME ONE Administration Metoprolol Tartrate 25 mg 02/27/20 10:26 02/27/20 10:38 Lopressor PO 02/27/20 10:27 25 mg ONETIME ONE Administration Morphine Sulfate 15 mg 02/27/20 10:25 02/27/20 10:38 Ms Contin PO 02/27/20 10:26 15 mg ONETIME ONE Administration Pregabalin 75 mg 02/27/20 10:24 02/27/20 10:38 Lyrica PO 02/27/20 10:25 75 mg ONETIME ONE Administration Departure - Departure Time of Disposition: 12:30 Disposition: DC/Tfer to Acute Hospital 02 Condition: Fair Clinical Impression: Mild congestive heart failure - Discharge Information *PRESCRIPTION DRUG MONITORING PROGRAM REVIEWED*: Not Applicable *COPY OF PRESCRIPTION DRUG MONITORING REPORT IN PATIENT ANA: Not Applicable Referrals: Alfredo Jara MD [Primary Care Provider] - Forms: ED Department Discharge Sepsis Event Note (ED) - Evaluation Sepsis Screening Result: No Definite Risk - Focused Exam Vital Signs: Vital Signs Temp Pulse Pulse Resp BP BP Pulse Ox 02/27/20 10:38 87 132/75 02/27/20 10:10 36.6 C 87 14 132/75 95 - My Orders Last 24 Hours: My Active Orders 02/27/20 10:06 EKG Documentation Completion [RC] ASDIRECTED EKG 12 Lead [EK] Routine 02/27/20 10:07 Sodium Chloride 0.9% [Saline Flush] 10 ml FLUSH ASDIRECTED PRN Saline Lock Insert [OM.PC] Routine 02/27/20 10:21 Cardiac Monitoring [RC] .As Directed 02/27/20 12:10 Heparin Sodium 4,000 units IVPUSH ONETIME ONE 02/27/20 12:15 Heparin Sodium/D5W [Heparin 25,000 Units in D5W 500 ML] 25,000 units in 500 ml IV TITRATE - Assessment/Plan Last 24 Hours: My Active Orders 02/27/20 10:06 EKG Documentation Completion [RC] ASDIRECTED EKG 12 Lead [EK] Routine 02/27/20 10:07 Sodium Chloride 0.9% [Saline Flush] 10 ml FLUSH ASDIRECTED PRN Saline Lock Insert [OM.PC] Routine 02/27/20 10:21 Cardiac Monitoring [RC] .As Directed 02/27/20 12:10 Heparin Sodium 4,000 units IVPUSH ONETIME ONE 02/27/20 12:15 Heparin Sodium/D5W [Heparin 25,000 Units in D5W 500 ML] 25,000 units in 500 ml IV TITRATE
[2020-02-27] MEDS ORDERED: Heparin Sodium 5,000 Units/ML Vial IVPUSH ONE (12:10)
[2020-02-27] MEDS ORDERED: Heparin Sodium/D5W 25,000 UNITS/500 ML BAG IV SCH (12:15)
== END 2020-02-27 13:49 ==
LOC: JP.ED 09:57
DX: I50.9 Heart failure, unspecified (principal); E11.40 Type 2 diabetes mellitus with diabetic neuropathy, unspecified; I10 Essential (primary) hypertension; F17.210 Nicotine dependence, cigarettes, uncomplicated; Z79.82 Long term (current) use of aspirin; Z79.4 Long term (current) use of insulin; Z79.899 Other long term (current) drug therapy; Z20.828 Contact with and (suspected) exposure to other viral communicable diseases
CPT/HCPCS: 36415; 83880; 84484; 85379; 96365; 96375; 99285; A9270; J1644; J1940; U0002

== ENCOUNTER 2020-06-21 09:10 | Emergency (ER) | payer MEDICARE ==
[2020-06-21] MEDS ORDERED: Carvedilol 3.125 MG Tab PO ONE (09:35)
[2020-06-21] MEDS ORDERED: Potassium Chloride 20 MEQ Tab.ER PO ONE (09:39)
[2020-06-21] MEDS ORDERED: NS + KCl 20mEq/L 1,000 ML IV SCH (09:45)
--- NOTE | 2020-06-21 09:49 | EDM.PDOC ---
ED HPI GENERAL MEDICAL PROBLEM - General Chief Complaint: General Stated Complaint: MEDICAL [facility]IA [facility] Time Seen by Provider: 06/21/20 09:30 Source of Information: Reports: Patient, Old Records, RN (at [facility]) History Limitations: Reports: No Limitations - History of Present Illness INITIAL COMMENTS - FREE TEXT/NARRATIVE: 69 yo male is at [facility] for rehab after an DC, he has been there for about 3 mos. His meds are managed by 2 different [facility] providers. Dr. Jara and a [employer] T[employer] OPERATOR. Recently his BUN/Cr have been increasing so his diuretics have been getting progressively reduced in terms of dosage and frequency. The last dose reduction was Thursday of this week. Today his BUN hit 90 so he was sent to the ER for "IV fluids" via ambulance. Deandre says he feels fine, does admit to occasional dizziness with standing. He has AODM. He denies diarrhea or vomiting and has been eating and drinking normally. The decision to send him to the ER and by EMS was by the FREEZER TUNNEL OPERATOR today as Dr. Jara was not available for another 35 minutes. EMS said that Deandre walked unassisted to the cart for transport to the ER. Onset: Gradual Duration: Week(s): (?), Getting Worse Location: Reports: Generalized Quality: Reports: Other (pain was not reported) Severity: Mild Improves with: Reports: Other (? hydration) Worsens with: Reports: Other (time/diuretics) Context: Reports: Other (See HPI) Associated Symptoms: Reports: No Other Symptoms Treatments [employer]: Reports: Other (see below) (gradual reduction in diuretics dose.) Bilateral Feet Pain Score (Numeric/FACES): 8 - Related Data Allergies Allergy/AdvReac Type Severity Reaction Status Date / Time No Known Allergies Allergy Verified 06/21/20 09:23 Home Meds: Home Meds Morphine [MS Contin] 15 mg PO TID PRN 06/02/16 [History] Aspirin [Lo-Dose Aspirin EC] 81 mg PO DAILY 05/16/19 [History] Pregabalin [Lyrica] 75 mg PO BID 11/21/19 [History] QUEtiapine [SEROquel] 100 mg PO BEDTIME 11/21/19 [History] Clopidogrel [Plavix] 75 mg PO DAILY 06/21/20 [History] DULoxetine HCl [Cymbalta] 60 mg PO DAILY 06/21/20 [History] Insulin Aspart [Insulin Aspart Flexpen] 10 unit SQ TID 06/21/20 [History] Insulin Glarg,Human.Rec.Analog [Lantus Solostar] 30 units SQ DAILY 06/21/20 [H istory] Mineral Oil/I-Prop Myr/Water [Minerin] 473 ml TP ASDIRECTED 06/21/20 [History] Nicotine [Habitrol] 21 mg TD DAILY 06/21/20 [History] Sertraline [Zoloft] 50 mg PO BEDTIME 06/21/20 [History] Spironolactone [Aldactone] 25 mg PO DAILY 06/21/20 [History] Torsemide 50 mg PO BID 06/21/20 [History] atorvaSTATin [Lipitor] 10 mg PO BEDTIME 06/21/20 [History] carvediloL [Carvedilol] 3.125 mg PO BID 06/21/20 [History] cephALEXin [Cephalexin] 250 mg PO QID 06/21/20 [History] metOLazone [Metolazone] 2.5 mg PO DAILY 06/21/20 [History] polyethylene glycoL 3350 [MiraLAX] 17 gm PO DAILY 06/21/20 [History] Past Medical History HEENT History: Reports: Impaired Vision Other HEENT History: wears glasses-wolef not have them with Cardiovascular History: Reports: Hypertension, PVD Respiratory History: Reports: COPD, SOB Gastrointestinal History: Reports: None Genitourinary History: Reports: None Musculoskeletal History: Reports: Amputation, Other (See Below) Other Musculoskeletal History: spinal stenosis, carpal tunnel , lumbar stenosis, toe amputations on both feet Neurological History: Reports: Neuropathy, Diabetic Other Neuro History: claudication Psychiatric History: Reports: Depression, Other (See Below) Other Psychiatric History: personality disorder Endocrine/Metabolic History: Reports: Diabetes, Type II Hematologic History: Reports: None Immunologic History: Reports: None, Other (See Below) Other Immunologic History: infections in L foot Oncologic (Cancer) History: Reports: None Other Dermatologic History: diabetic ulcer - Infectious Disease History Infectious Disease History: Reports: MRSA - Past Surgical History Head Surgeries/Procedures: Reports: None HEENT Surgical History: Reports: Oral Surgery Cardiovascular Surgical History: Reports: Other (See Below) Other Cardiovascular Surgeries/Procedures: stent in the leg Respiratory Surgical History: Reports: None GI Surgical History: Reports: None Endocrine Surgical History: Reports: None Neurological Surgical History: Reports: None Musculoskeletal Surgical History: Reports: Amputation, Carpal Tunnel Dermatological Surgical History: Reports: None Social & Family History - Family History Family Medical History: No Pertinent Family History - Caffeine Use Caffeine Use: Reports: Coffee ED ROS GENERAL - Review of Systems Review Of Systems: See Below Constitutional: Reports: No Symptoms HEENT: Reports: No Symptoms Respiratory: Reports: No Symptoms Cardiovascular: Reports: No Symptoms Endocrine: Reports: No Symptoms GI/Abdominal: Reports: No Symptoms : Reports: Other ("I urinate a lot") Musculoskeletal: Reports: No Symptoms Skin: Reports: Other (sores on R leg for which he is on cephelexin and has had his legs wrapped for the past 2 weeks. ) Neurological: Reports: No Symptoms ED EXAM, GENERAL - Physical Exam Exam: See Below Exam Limited By: No Limitations General Appearance: Alert, WD/WN, No Apparent Distress Eye Exam: Bilateral Eye: Normal Inspection Ears: Normal External Exam, Normal Canal, Hearing Grossly Normal Ear Exam: Bilateral Ear: Auricle Normal, Canal Normal Nose: Normal Inspection, No Blood Throat/Mouth: Normal Lips, Normal Oropharynx, Normal Voice, No Airway Compromis e, Other (dry oral mucosa) Head: Atraumatic, Normocephalic Neck: Normal Inspection Respiratory/Chest: No Respiratory Distress, Lungs Clear, Normal Breath Sounds, No Accessory Muscle Use Cardiovascular: Regular Rate, Rhythm, No Edema GI/Abdominal: Normal Bowel Sounds, Soft, Non-Tender Extremities: Normal Range of Motion, No Pedal Edema, Other (there is a gauze wrap on R ankle area) Neurological: Alert, Oriented, CN II-XII Intact, Normal Cognition, No Motor/Sensory Deficits Psychiatric: Normal Affect, Normal Mood Skin Exam: Warm, Dry, Intact, Normal Color, No Rash Course - Vital Signs Last Recorded V/S: Last Vital Signs Temp 36.3 C 06/21/20 09:18 Pulse 80 06/21/20 09:54 Resp 16 06/21/20 09:18 BP 151/55 H 06/21/20 09:54 Pulse Ox 95 06/21/20 09:18 - Orders/Labs/Meds Orders: Active Orders 24 hr Category Date Time Status NS + KCl 20mEq/L [Normal Saline with 20 mEq KCl] 1,000 Med 06/21/20 09:45 Active ml IV ASDIRECTED Medication Orders Potassium Chloride/Sodium Chloride (Normal Saline With 20 Meq Kcl) 1,000 mls @ 1,000 mls/hr IV ASDIRECTED HARIS Last Admin: 06/21/20 09:55 Dose: 1,000 mls/hr Documented by: SAMMI Meds: Medications Generic Name Dose Route Start Last Admin Trade Name Freq PRN Reason Stop Dose Admin Potassium Chloride/Sodium Chloride 1,000 mls @ 1,000 mls/hr 06/21/20 09:45 06/21/20 09:55 Normal Saline With 20 Meq Kcl IV 1,000 mls/hr ASDIRECTED HARIS Administration Discontinued Medications Generic Name Dose Route Start Last Admin Trade Name Freq PRN Reason Stop Dose Admin Carvedilol 3.125 mg 06/21/20 09:35 06/21/20 09:54 Carvedilol 3.125 Mg Tab PO 06/21/20 09:36 3.125 mg ONETIME ONE Administration Potassium Chloride 20 meq 06/21/20 09:39 06/21/20 09:54 Potassium Chloride 20 Meq Tab.Er PO 06/21/20 09:40 20 meq ONETIME ONE Administration Departure - Departure Time of Disposition: 11:15 Disposition: Home, Self-Care 01 Clinical Impression: Diuresis excessive, Dehydration, Hypokalemia - Discharge Information *PRESCRIPTION DRUG MONITORING PROGRAM REVIEWED*: Not Applicable *COPY OF PRESCRIPTION DRUG MONITORING REPORT IN PATIENT ANA: Not Applicable Referrals: PCP,None [Primary Care Provider] - Forms: ED Department Discharge Additional Instructions: Contact Dr. Jara regarding any further reductions in his diuretics. Sepsis Event Note (ED) - Evaluation Sepsis Screening Result: No Definite Risk - Focused Exam Vital Signs: Vital Signs Temp Pulse Pulse Resp BP BP Pulse Ox 06/21/20 09:54 80 151/55 H 06/21/20 09:18 36.3 C 88 16 142/54 H 95 06/21/20 09:11 36.3 C 88 16 142/54 H 95 - My Orders Last 24 Hours: My Active Orders 06/21/20 09:45 NS + KCl 20mEq/L [Normal Saline with 20 mEq KCl] 1,000 ml IV ASDIRECTED - Assessment/Plan Last 24 Hours: My Active Orders 06/21/20 09:45 NS + KCl 20mEq/L [Normal Saline with 20 mEq KCl] 1,000 ml IV ASDIRECTED
[2020-06-21 11:23] VITALS: BP 127/62; PULSE 84
== END 2020-06-21 11:52 | disposition home or self-care (01) ==
LOC: JP.ED 09:10
DX: E87.6 Hypokalemia (principal); E86.0 Dehydration; R35.8 Other polyuria; I25.2 Old myocardial infarction; J44.9 Chronic obstructive pulmonary disease, unspecified; E11.40 Type 2 diabetes mellitus with diabetic neuropathy, unspecified; E11.51 Type 2 diabetes mellitus with diabetic peripheral angiopathy without gangrene; Z79.4 Long term (current) use of insulin; Z79.82 Long term (current) use of aspirin; Z79.02 Long term (current) use of antithrombotics/antiplatelets; Z79.899 Other long term (current) drug therapy
CPT/HCPCS: 96365; 99284; A9270; J3480

== ENCOUNTER 2020-09-13 07:26 | Day surgery (SDC) | payer MEDICARE ==
[~2020-09-13 07:26] MED LIST changes: -Bupivacaine 0.5% 50 ML MDV ONE; -Lidocaine 2% 20 ML MDV ONE
[2020-09-13] MEDS ORDERED: Dextrose 5%-Lactated Ringers 1,000 ML IV SCH (08:00)
[2020-09-13 12:03] VITALS: BP 125/70; PULSE 84
--- NOTE | 2020-09-23 14:32 | OR ---
DATE OF PROCEDURE: 09/13/2020 SURGEON: Deandre Camara MD PREOPERATIVE DIAGNOSIS: Dysphagia referable to the mid and distal esophagus. POSTOPERATIVE DIAGNOSES: Dysphagia referable to mid and distal esophagus with: 1. Small hiatal hernia with patchy esophagitis with fungal overgrowth. 2. Small gastric bezoar. 3. Mild antral gastritis. OPERATIVE PROCEDURE: Esophagogastroduodenoscopy with antral biopsies for CLOtest. ANESTHESIA: IV sedation. INDICATIONS FOR PROCEDURE: This is a 70-year-old resident of [facility] presenting with some worsening dysphagia referable to the mid and distal esophagus. The patient is presently on rest and proton pump inhibitors. Plan is to proceed with upper GI endoscopy with biopsies and/or dilation as indicated. Potential risks including bleeding and perforation were discussed, and the patient wishes to proceed. DETAILS OF PROCEDURE: The patient was taken to the operating room and placed in a left lateral decubitus position. IV sedation was administered after which the upper GI endoscope was passed orally through the length of the esophagus and into the stomach with retroflexion view of the fundus and thereafter through the pyloric channel into the proximal duodenum. Findings included normal hypopharynx, larynx, and upper esophageal sphincter. In the mid esophageal body, there was beginning of some fungal overgrowth, which intensified towards the area of the esophagogastric junction. This was associated with a small hiatal hernia and some patchy esophagitis. No obvious upward extension of the gastroesophageal junction mucosal line was seen. No stricturing, plaquing, or other signs of neoplastic change were noted. Within the stomach, there was a small gastric bezoar, perhaps a tablespoon size, and some mild redness in the antrum, but otherwise, the pyloric channel and visualized portions of the duodenum were unremarkable. At this point, biopsies were obtained from the antrum and sent for CLOtest for H. pylori. Minimal bleeding from the biopsy sites was seen, and the procedure was then concluded. At this point, we will have the [facility] implement an anti-bezoar diet and with regard to the fungal overgrowth, he will be given a prescription for Mycostatin swish and swallow 5 mL q.i.d. x7 days and otherwise continue his current medications. Deandre Camara MD /[id number]
== END 2020-09-13 12:15 ==
LOC: JP.SDS 07:26
PROVIDERS: ATTEND Surgery
DX: K29.70 Gastritis, unspecified, without bleeding (principal); R13.10 Dysphagia, unspecified; K44.9 Diaphragmatic hernia without obstruction or gangrene; K20.90 Esophagitis, unspecified without bleeding; T18.2XXA Foreign body in stomach, initial encounter; I11.0 Hypertensive heart disease with heart failure; I50.9 Heart failure, unspecified; J44.9 Chronic obstructive pulmonary disease, unspecified; I25.2 Old myocardial infarction; E11.9 Type 2 diabetes mellitus without complications
CPT/HCPCS: 43239; 87081; J2704; J3010; J7121; J2250

== ENCOUNTER 2021-06-16 15:42 | Inpatient (IN) | payer MEDICARE, MEDICAID ==
[2021-06-16] MEDS ORDERED: Albuterol/Ipratropium 3.0-0.5 MG/3 ML Neb Soln ONE (15:43)
[2021-06-16] MEDS ORDERED: Albuterol/Ipratropium 3.0-0.5 MG/3 ML Neb Soln NEB ONE (15:49)
[2021-06-16] MEDS ORDERED: Azithromycin 1,000 MG in Sodium Chloride 0.9% 500 ML IV ONE (16:06)
[2021-06-16] MEDS ORDERED: cefTRIAXone 1 GM in Sodium Chloride 0.9% 50 ML IV ONE (16:06)
[2021-06-16 16:15] LABS: TROPONIN I HIGH SENSITIVITY 1596.5 pg/mL (<=60.3)
[2021-06-16] MEDS ORDERED: Furosemide 40 MG/4 ML VIAL IVPUSH ONE (16:23)
[2021-06-16 16:36] LABS: CORONAVIRUS COVID-19 NAA NEGATIVE (NEGATIVE)
[2021-06-16] MEDS ORDERED: Sodium Chloride 0.9% 1,000 ML IV SCH ×2 (17:00)
[2021-06-16] MEDS ORDERED: Polyethylene Glycol 3350 Powder 17 GM Packet PO PRN (18:11)
[2021-06-16] MEDS ORDERED: Morphine 30 MG Tab.ER PO PRN (18:11)
[2021-06-16] MEDS ORDERED: Glucose Gel 15 GM in 37.5 GM Tube PO PRN (18:11)
[2021-06-16] MEDS ORDERED: Doxycycline 100 MG in Sodium Chloride 0.9% 100 ML IV SCH (18:11)
[2021-06-16] MEDS ORDERED: Albuterol 0.083% 2.5 MG/3 ML Neb Soln NEB PRN (18:11)
[2021-06-16] MEDS ORDERED: 50% Dextrose in Water 50 ML Syringe IV PRN (18:11)
[2021-06-16] MEDS ORDERED: Ondansetron 4 MG/2 ML SDV IV PRN (18:11)
[2021-06-16] MEDS ORDERED: Sodium Chloride 0.9% 10 ML Syringe FLUSH PRN (18:11)
[2021-06-16] MEDS ORDERED: Heparin Sodium/D5W 25,000 UNITS/500 ML BAG IV SCH (18:11)
[2021-06-16] MEDS ORDERED: Acetaminophen 325 MG Tab PO PRN (18:11)
[2021-06-16] MEDS: Sodium Chloride 0.9% 1,000 ML IV SCH (18:55)
[2021-06-16] MEDS ORDERED: Heparin Sodium 5,000 Units/ML Vial ONE (18:58)
[2021-06-16] MEDS ORDERED: Heparin Sodium 5,000 Units/ML Vial IVPUSH ONE (19:14)
[2021-06-16] MEDS ORDERED: Insulin Lispro 100 Unit/ML 3 ML KwikPen SUBCUT SCH (20:00)
[2021-06-16] MEDS ORDERED: QUEtiapine 100 MG Tab PO SCH (21:00)
[2021-06-16] MEDS ORDERED: Sertraline 50 MG Tab PO SCH (21:00)
[2021-06-16] MEDS ORDERED: Pregabalin 75 MG Cap PO SCH (21:00)
[2021-06-16] MEDS ORDERED: atorvaSTATin 10 MG Tab PO SCH (21:00)
[2021-06-16] MEDS ORDERED: Insulin Glargine,Human Rec. Analog 100 Units/ML 3 ML Pen SUBCUT SCH (21:00)
[2021-06-16] MEDS ORDERED: hydrOXYzine HCl 25 MG Tab PO SCH (21:00)
[2021-06-16] MEDS ORDERED: Albuterol/Ipratropium 3.0-0.5 MG/3 ML Neb Soln NEB SCH (22:00)
[2021-06-16] MEDS: Acetaminophen 650 MG Supp RECTAL PRN (22:18)
[2021-06-16] MEDS: Morphine 10 MG/0.5 ML Oral Syringe PO PRN ×2 (22:24→22:50)
[2021-06-16] MEDS ORDERED: Morphine 10 MG/0.5 ML Oral Syringe PO PRN (22:42)
[2021-06-16] MEDS ORDERED: Metoprolol Tartrate 5 MG/5 ML SDV IVPUSH PRN (22:43)
[2021-06-17] MEDS ORDERED: Heparin Sodium 5,000 Units/ML Vial IVPUSH ONE (01:38)
[2021-06-17] MEDS: Acetaminophen 650 MG Supp RECTAL PRN (01:54)
[2021-06-17] MEDS: Sodium Chloride 0.9% 1,000 ML IV SCH (04:07)
[2021-06-17 05:59] VITALS: BP 42/21; PULSE 26
[2021-06-17] MEDS ORDERED: Albuterol/Ipratropium 3.0-0.5 MG/3 ML Neb Soln NEB SCH (07:00)
[2021-06-17] MEDS ORDERED: Morphine 15 MG Tab.ER PO PRN (07:26)
[2021-06-17] MEDS ORDERED: Carvedilol 3.125 MG Tab PO SCH (08:00)
[2021-06-17] MEDS ORDERED: Aspirin 81 MG Tab.EC PO SCH (09:00)
[2021-06-17] MEDS ORDERED: Insulin Glargine,Human Rec. Analog 100 Units/ML 3 ML Pen SUBCUT SCH (09:00)
[2021-06-17] MEDS ORDERED: Torsemide 20 MG Tab PO SCH (09:00)
[2021-06-17] MEDS ORDERED: Famotidine 20 MG Tab PO SCH (09:00)
[2021-06-17] MEDS ORDERED: Clopidogrel 75 MG Tab PO SCH (09:00)
[2021-06-17] MEDS ORDERED: DULoxetine 30 MG Cap PO SCH (09:00)
[2021-06-17] MEDS ORDERED: Spironolactone 25 MG Tab PO SCH (09:00)
[2021-06-17] MEDS ORDERED: cefTRIAXone 1 GM in Sodium Chloride 0.9% 50 ML IV SCH (16:00)
== END 2021-06-17 05:02 | disposition expired | DRG 871 ==
LOC: JP.ED 15:42 → UNDOADMIN 17:34 → JP.ICU 17:34
PROVIDERS: ADMIT Hospitalist; ATTEND Hospitalist
DX: I21.4 Non-ST elevation (NSTEMI) myocardial infarction (principal); A41.9 Sepsis, unspecified organism; J18.9 Pneumonia, unspecified organism; J96.21 Acute and chronic respiratory failure with hypoxia; I21.A1 Myocardial infarction type 2; J44.0 Chronic obstructive pulmonary disease with (acute) lower respiratory infection; N18.4 Chronic kidney disease, stage 4 (severe); I73.9 Peripheral vascular disease, unspecified; I13.0 Hypertensive heart and chronic kidney disease with heart failure and stage 1 through stage 4 chronic kidney disease, or unspecified chronic kidney disease; L97.929 Non-pressure chronic ulcer of unspecified part of left lower leg with unspecified severity; L97.919 Non-pressure chronic ulcer of unspecified part of right lower leg with unspecified severity; E11.40 Type 2 diabetes mellitus with diabetic neuropathy, unspecified; N17.9 Acute kidney failure, unspecified; R65.20 Severe sepsis without septic shock; Z51.5 Encounter for palliative care; Z20.822 Contact with and (suspected) exposure to COVID-19; Z66 Do not resuscitate; H54.7 Unspecified visual loss; I50.9 Heart failure, unspecified; E78.00 Pure hypercholesterolemia, unspecified; K59.09 Other constipation; K21.9 Gastro-esophageal reflux disease without esophagitis; M24.542 Contracture, left hand; M24.541 Contracture, right hand; E11.42 Type 2 diabetes mellitus with diabetic polyneuropathy; E11.51 Type 2 diabetes mellitus with diabetic peripheral angiopathy without gangrene; M48.062 Spinal stenosis, lumbar region with neurogenic claudication; I25.10 Atherosclerotic heart disease of native coronary artery without angina pectoris; F17.200 Nicotine dependence, unspecified, uncomplicated; F60.9 Personality disorder, unspecified; F32.A Depression, unspecified; E11.622 Type 2 diabetes mellitus with other skin ulcer; Z79.82 Long term (current) use of aspirin; Z79.4 Long term (current) use of insulin; Z79.899 Other long term (current) drug therapy; I25.2 Old myocardial infarction; Z99.81 Dependence on supplemental oxygen; Z89.422 Acquired absence of other left toe(s); Z89.421 Acquired absence of other right toe(s); Z86.14 Personal history of Methicillin resistant Staphylococcus aureus infection; Z79.02 Long term (current) use of antithrombotics/antiplatelets; Z98.890 Other specified postprocedural states; Z95.820 Peripheral vascular angioplasty status with implants and grafts
CPT/HCPCS: 0241U; 36415; 36600; 71045; 71045-26; 80053; 82803; 82947; 83605; 84145; 84484; 85025; 85730; 87040; 94640; 96365; 96367; 96375; 99222; 99238; 99285; 99285-25; A9270-GY; J0456; J0696; J1644; J1815; J1815-GY; J1940; J3490; J7030; J7040; J7620